=== PATIENT | male | born 1945 | race Caucasian/White ===

== ENCOUNTER 2016-07-21 01:47 | Emergency (ER) | payer MEDICARE ==
[2016-07-21 01:50] VITALS: BMI 23.7
[2016-07-21 01:54] VITALS: TEMP 97.7
[2016-07-21 03:24] LABS: URINE BILIRUBIN NEGATIVE (NEGATIVE); URINE BLOOD SMALL (NEGATIVE); URINE GLUCOSE (UA) >=1000 mg/dL (NEGATIVE); URINE KETONE NEGATIVE (NEGATIVE); URINE LEUKOCYTE ESTERASE NEGATIVE Leu/uL (NEGATIVE); URINE PROTEIN NEGATIVE mg/dL (<30 mg/dL); URINE UROBILINOGEN 0.2 E.U./dL (<1 E.U./dL)
[2016-07-21 03:25] LABS: URINE APPEARANCE CLEAR (CLEAR); URINE COLOR YELLOW (YELLOW)
[2016-07-21 03:39] LABS: URINE BACTERIA FEW (NEG); URINE EPITHELIAL CELLS 0 - 2 /hpf (0-5); URINE WBC 0 - 2 /hpf (0-6)
[2016-07-21 04:03] VITALS: BP 128/72; PULSE 72; RESP 17; O2SAT 99
--- NOTE | 2016-07-21 04:22 | ED PDOC ---
Arrival/HPI - General Chief Complaint: Male Genitourinary Time Seen by Provider: 07/21/16 02:50 Historian: Patient - History of Present Illness Narrative History of Present Illness (Text): 07/21/16 03:00 A 70 year old male presents to the Emergency department complaining of not being able to urinate since early in the evening. Patient also reports suprapubic pain. Patient denies nausea, vomiting, fever or any other complaints at this time. Patient also denies dysuria or hematuria recently. Patient notes similar pain in the past. Symptom Onset: Sudden Symptom Course: Unchanged Activities at Onset: Rest Modifying Factors (Text): none Past Medical History - Provider Review Nursing Documentation Reviewed: Yes - Infectious Disease Hx of Infectious Diseases: None - Cardiac Hx [place]: Yes Hx Hypertension: Yes Hx Pacemaker: No - Neurological Hx Paralysis: No - Endocrine/Metabolic Hx Diabetes Mellitus Type 2: Yes - Hematological/Oncological Hx Blood Transfusions: No - Musculoskeletal/Rheumatological Hx Musculoskeletal Disorders: No - Psychiatric Hx Emotional Abuse: No Hx Physical Abuse: No Hx Substance Use: No - Surgical History Hx Cardiac Catheterization: Yes (x1 stent) - Anesthesia Hx Anesthesia: Yes Hx Anesthesia Reactions: No Hx Malignant Hyperthermia: No - Suicidal Assessment Feels Threatened In Home Enviroment: No Family/Social History - Physician Review Nursing Documentation Reviewed: Yes Family/Social History: No Known Family HX Smoking Status: Never Smoked Hx Alcohol Use: Yes (SOCIALLY) Frequency of alcohol use: Socially Hx Substance Use: No Allergies/Home Meds Allergies/Adverse Reactions: Allergies No Known Allergies Allergy (Verified 10/02/13 12:42) Home Medications: Home Meds Medication Instructions Recorded Confirmed Aspirin [Aspirin EC] 1 tab PO DAILY 07/21/16 07/21/16 Atorvastatin [Lipitor] 1 tab PO HS 07/21/16 07/21/16 Canagliflozin/Metformin HCl 1 tab PO BID 07/21/16 07/21/16 [Invokamet 150-1,000 mg Tablet] Isosorbide Mononitrate [Isosorbide 1 tab PO DAILY 07/21/16 07/21/16 Mononitrate ER] Lisinopril [Zestril] 1 tab PO DAILY 07/21/16 07/21/16 Metoprolol Succinate [Toprol XL] 1 tab PO DAILY 07/21/16 07/21/16 Review of Systems - Physician Review All systems were reviewed & negative as marked: Yes - Review of Systems Constitutional: absent: Fevers Gastrointestinal: Abdominal Pain (suprapubic). absent: Nausea, Vomiting Genitourinary Male: Urinary Output Changes. absent: Dysuria, Hematuria Physical Exam Vital Signs Reviewed: Yes Vital Signs Temp Pulse Resp BP Pulse Ox 07/21/16 04:01 72 17 128/72 99 07/21/16 01:54 97.7 F 84 18 175/89 H 96 Temperature: Afebrile Blood Pressure: Hypertensive Pulse: Regular Respiratory Rate: Normal Appearance: Positive for: Well-Appearing, Non-Toxic, Comfortable Pain Distress: None Mental Status: Positive for: Alert and Oriented X 3 - Systems Exam Head: Present: Atraumatic, Normocephalic Pupils: Present: PERRL Extroacular Muscles: Present: EOMI Conjunctiva: Present: Normal Mouth: Present: Moist Mucous Membranes Neck: Present: Normal Range of Motion Respiratory/Chest: Present: Clear to Auscultation, Good Air Exchange. No: Respiratory Distress, Accessory Muscle Use Cardiovascular: Present: Regular Rate and Rhythm, Normal S1, S2. No: Murmurs Abdomen: Present: Tenderness (suprapubic), Normal Bowel Sounds. No: Peritoneal Signs Back: Present: Normal Inspection Upper Extremity: Present: Normal Inspection. No: Cyanosis, Edema Lower Extremity: Present: Normal Inspection. No: Edema Neurological: Present: GCS=15, CN II-XII Intact, Speech Normal Skin: Present: Warm, Dry, Normal Color. No: Rashes Psychiatric: Present: Alert, Oriented x 3, Normal Insight, Normal Concentration Medical Decision Making ED Course and Treatment: 07/21/16 03:00 Impression: A 70 year old male unable to urinate with suprapubic pain. Differential Diagnosis included but are not limited to: Plan: -- Urinalysis -- Reassess and disposition Progress Notes: Patient states has had this pain in past, requires Alvarado. Alvarado put in, 700 cc came out. Patient feeling better. Will follow up with own urologist or Dr. Quick. 07/21/16 03:40 On re-evaluation, patient feels better and is in no acute distress. I have discussed the results and plan with the patient, who expresses understanding. Patient in agreement with plan to be discharged home. Patient is stable for discharge. Patient was instructed to follow up with physician or return if symptoms worsen or new concerning symptoms arise. - Lab Interpretations Lab Results: Lab Results 07/21/16 02:25: Urine Color Yellow, Urine Appearance Clear, Urine pH 6.0, Ur Specific [place] <= 1.005, Urine Protein Negative, Urine Glucose (UA) >=1000, Urine Ketones Negative, Urine Blood Small H, Urine Nitrate Negative, Urine Bilirubin Negative, Urine Urobilinogen 0.2, Ur Leukocyte Esterase Negative, Urine RBC 2 - 5, Urine WBC 0 - 2, Ur Epithelial Cells 0 - 2, Urine Bacteria Few - Scribe Statement The provider has reviewed the documentation as recorded by the Tamy Rojas Provider Scribe Attestation: All medical record entries made by the Scribe were at my direction and personally dictated by me. I have reviewed the chart and agree that the record accurately reflects my personal performance of the history, physical exam, medical decision making, and the department course for this patient. I have also personally directed, reviewed, and agree with the discharge instructions and disposition. Disposition/Present on Arrival - Present on Arrival Any Indicators Present on Arrival: No History of DVT/PE: No History of Uncontrolled Diabetes: No Urinary Catheter: No History of Decub. Ulcer: No History Surgical Site Infection Following: None - Disposition Have Diagnosis and Disposition been Completed?: Yes Diagnosis: Urinary retention Disposition: HOME/ ROUTINE Disposition Time: 03:40 Condition: IMPROVED Discharge Instructions (ExitCare): Alvarado Catheter Placement and Care (ED), Urinary Leg Bag (GEN) Additional Instructions: Thank you for letting us take care of you today. Your provider was Dr. Goodwin. You were treated for urinary retention. The emergency medical care you received today was directed at your acute symptoms. If you were prescribed any medication, please fill it and take as directed. It may take several days for your symptoms to resolve. Return to the Emergency Department if your symptoms worsen, do not improve, or if you have any other problems. Please contact your doctor or call one of the physicians/clinics you have been referred to that are listed on the Patient Visit Information form that is included in your discharge packet. Bring any paperwork you were given at discharge with you along with any medications you are taking to your follow up visit. Our treatment cannot replace ongoing medical care by a primary care provider (PCP) outside of the emergency department. Thank you for allowing the [facility] team to be part of your care today. You had a urine culture: It will take several days for the results, if any change in treatment is needed we will contact you. Follow up with Dr. Quick (urology) or your urologist in 2-3 days. Prescriptions: Nitrofurantoin Macrocrystals [Macrobid] 100 mg PO BID #10 cap Tamsulosin [Flomax] 0.4 mg PO DAILY #7 cap Referrals: Dawson Quick MD [Staff Provider] - Follow up with primary
== END 2016-07-21 04:01 | disposition home or self-care (01) ==
LOC: ED 01:47
DX: R33.9 Retention of urine, unspecified (principal)

== ENCOUNTER 2016-12-07 22:58 | Emergency (ER) | payer MEDICARE ==
[2016-12-07 23:19] VITALS: BMI 20.2
[2016-12-07 23:28] VITALS: BP 152/77; PULSE 90; RESP 19; TEMP 98; O2SAT 98
--- NOTE | 2016-12-07 23:45 | ED PDOC ---
Arrival/HPI <Cleveland Wakefield - Last Filed: 12/08/16 00:17> - General Historian: Patient - History of Present Illness Time/Duration: 4-6 hours Symptom Onset: Sudden Symptom Course: Unchanged Quality: Pressure, Fullness Severity Level: Moderate, Severe Context: Home <Juliann Aguilar - Last Filed: 12/08/16 00:19> - General Chief Complaint: Male Genitourinary Time Seen by Provider: 12/07/16 23:27 - History of Present Illness Narrative History of Present Illness (Text): 12/07/16 23:42 70M w/PMH sig for urinary retention evaluated for abdominal pain x 1.5 hrs. Pt reports pain is suprapubic, non radiating, constant, moderate, no alleviating factors identified, no aggravating factors identified. Pt reports similar abdominal pain when he had urinary retention previous. Did not take his Flomax tonight. Drank a few beers prior to arrival. Pt reports he has had a urological work up with Dr. Quick, which was negative for any masses, polyps or other urological findings. Denies N/V/F/C, shortness of breath, chest pain, constipation, diarrhea, dysuria, hematuria, flank pain, back pain. PMH: Hx urinary retention, CAD s/p stents, diabetes, hypertension PSH: Cardiac stents All: NKDA SH: Admits to 3-4 beers/mo, denies tobacco or illicit drug use PMD: [place] [facility]: [facility] (Juliann Aguilar) Modifying Factors (Text): 12/08/16 00:18 None (Juliann Aguilar) Associated Symptoms (Text): 12/08/16 00:18 None (Juliann Aguilar) Past Medical History - Provider Review Nursing Documentation Reviewed: Yes - Infectious Disease Hx of Infectious Diseases: None - Cardiac Hx [place]: Yes Hx Hypertension: Yes Hx Pacemaker: No - Neurological Hx Paralysis: No - Endocrine/Metabolic Hx Diabetes Mellitus Type 2: Yes - Hematological/Oncological Hx Blood Transfusions: No - Musculoskeletal/Rheumatological Hx Musculoskeletal Disorders: No - Psychiatric Hx Emotional Abuse: No Hx Physical Abuse: No Hx Substance Use: No - Surgical History Hx Cardiac Catheterization: Yes (x1 stent) - Anesthesia Hx Anesthesia: Yes Hx Anesthesia Reactions: No Hx Malignant Hyperthermia: No - Suicidal Assessment Feels Threatened In Home Enviroment: No <Juliann Aguilar - Last Filed: 12/08/16 00:19> Family/Social History - Physician Review Nursing Documentation Reviewed: Yes Family/Social History: No Known Family HX Smoking Status: Never Smoked Hx Alcohol Use: Yes (SOCIALLY) Hx Substance Use: No <Juliann Aguilar - Last Filed: 12/08/16 00:19> Allergies/Home Meds <Cleveland Wakefield - Last Filed: 12/08/16 00:17> <Juliann Aguilar - Last Filed: 12/08/16 00:19> Allergies/Adverse Reactions: Allergies No Known Allergies Allergy (Verified 10/02/13 12:42) Home Medications: Home Meds Medication Instructions Recorded Confirmed Atorvastatin Calcium [Lipitor] 80 mg PO DAILY 12/07/16 12/07/16 Canagliflozin/Metformin HCl 1 tab PO BID 12/07/16 12/07/16 [Invokamet 150 mg-1000 mg] Ferrous Sulfate [Feosol] 325 mg PO DAILY 12/07/16 12/07/16 Isosorbide Mononitrate [Isosorbide 30 mg PO DAILY 12/07/16 12/07/16 Mononitrate ER] Lisinopril [Zestril] 40 mg PO DAILY 12/07/16 12/07/16 Metoprolol Succinate [Toprol XL] 25 mg PO DAILY 12/07/16 12/07/16 Tamsulosin [Flomax] 0.4 mg PO DAILY 12/07/16 12/07/16 Review of Systems - Physician Review All systems were reviewed & negative as marked: Yes - Review of Systems Constitutional: Normal Eyes: Normal ENT: Normal Respiratory: Normal Cardiovascular: Normal Gastrointestinal: Abdominal Pain. absent: Constipation, Diarrhea, Nausea, Vomiting, Hematochezia, Hematemesis Genitourinary Male: Urinary Output Changes (decreased). absent: Dysuria, Frequency, Hematuria Musculoskeletal: Normal. absent: Back Pain Skin: Normal Neurological: Normal <Juliann Aguilar - Last Filed: 12/08/16 00:19> Physical Exam Vital Signs Reviewed: Yes Temperature: Afebrile Blood Pressure: Hypertensive Pulse: Regular Respiratory Rate: Normal Appearance: Positive for: Non-Toxic Pain Distress: Mild Mental Status: Positive for: Alert and Oriented X 3 Finger Stick Blood Glucose: 129 - Systems Exam Head: Present: Atraumatic, Normocephalic Extroacular Muscles: Present: EOMI Conjunctiva: Present: Normal Mouth: Present: Moist Mucous Membranes Nose (External): Present: Atraumatic Neck: Present: Normal Range of Motion Respiratory/Chest: Present: Clear to Auscultation, Good Air Exchange. No: Respiratory Distress, Accessory Muscle Use Cardiovascular: Present: Regular Rate and Rhythm, Normal S1, S2. No: Murmurs Abdomen: Present: Tenderness (suprapubic), Normal Bowel Sounds, Guarding ( suprapubic), Hernias (small umbilical). No: Distention, Peritoneal Signs, Rebound Back: Present: Normal Inspection. No: CVA Tenderness Upper Extremity: Present: Normal Inspection. No: Cyanosis, Edema Lower Extremity: Present: Normal Inspection. No: Edema Neurological: Present: GCS=15, CN II-XII Intact, Speech Normal Skin: Present: Warm, Dry, Normal Color. No: Rashes Psychiatric: Present: Alert, Oriented x 3, Normal Insight, Normal Concentration <Juliann Aguilar - Last Filed: 12/08/16 00:19> Vital Signs Temp Pulse Resp BP Pulse Ox 12/07/16 23:27 98 F 90 19 152/77 H 98 Medical Decision Making <Cleveland Wakefield - Last Filed: 12/08/16 00:17> <Juliann Aguilar - Last Filed: 12/08/16 00:19> ED Course and Treatment: 12/08/16 00:14 In agreement with resident note, which includes further HPI details. Patient was seen and evaluated with resident, came up with plan and treatment together. 70 year old male presents complaining of abdominal pain that began today. (Cleveland Wakefield) 12/07/16 23:46 Pt seen/evaluated, will place clinton and monitor for UOP and give Flomax 12/07/16 23:58 Clinton with over 800cc clear yellow UOP out. Will d/c home with clinton in place and instructions to follow up with Dr. Quick. (Juliann Aguilar) - Medication Orders Current Medication Orders: Discontinued Medications Tamsulosin HCl (Flomax) 0.4 mg PO STAT STA Stop: 12/07/16 23:42 - PA / COMMUNITY EDUCATOR / Resident Statement /DO has reviewed & agrees with the documentation as recorded. MD/ has examined the patient and agrees with the treatment plan. - Scribe Statement The provider has reviewed the documentation as recorded by the Scribe <Twyla,Cleveland - Last Filed: 12/08/16 00:17> <Juliann Aguilar - Last Filed: 12/08/16 00:19> - Scribe Statement Lanette Gamez Provider Scribe Attestation: All medical record entries made by the Scribe were at my direction and personally dictated by me. I have reviewed the chart and agree that the record accurately reflects my personal performance of the history, physical exam, medical decision making, and the department course for this patient. I have also personally directed, reviewed, and agree with the discharge instructions and disposition. (Cleveland Wakefield) Disposition/Present on Arrival <Cleveland Wakefield - Last Filed: 12/08/16 00:17> - Present on Arrival Any Indicators Present on Arrival: No History of DVT/PE: No History of Uncontrolled Diabetes: No Urinary Catheter: No History of Decub. Ulcer: No History Surgical Site Infection Following: None - Disposition Have Diagnosis and Disposition been Completed?: Yes Disposition Time: 23:52 <Juliann Aguilar - Last Filed: 12/08/16 00:19> - Disposition Diagnosis: Acute urinary retention Disposition: HOME/ ROUTINE Condition: STABLE Discharge Instructions (ExitCare): Urinary Retention in Men (ED), Clinton Catheter Placement and Care (ED), Urinary Leg Bag (GEN) Additional Instructions: Please follow up with Dr. Quick for further evaluation. Continue to take your Flomax, especially if you drink beer. Referrals: Dawson Quick MD [Staff Provider] - Follow up with primary Forms: Shortlist (Icelandic)
== END 2016-12-08 00:26 | disposition home or self-care (01) ==
LOC: ED 22:58
DX: R33.9 Retention of urine, unspecified (principal); I10 Essential (primary) hypertension; E11.9 Type 2 diabetes mellitus without complications

== ENCOUNTER 2017-07-27 00:42 | Emergency (ER) | payer MEDICARE ==
--- NOTE | 2017-07-27 00:49 | ED PDOC ---
Arrival/HPI - General Time Seen by Provider: 07/27/17 00:43 Historian: Patient - History of Present Illness Narrative History of Present Illness (Text): 07/27/17 00:45 71 y/o male, pmh including htn/hyperlipidemia/dm/urinary retention, nkda, c/o urinary retention x 1 day. Pt. stated that he feels suprapubic region is distended, has the urge to urinate but the pressure is not strong, didn't took his flomax today, no fever or chills, no chest pain or shortness of breath, no night sweat, no palpitation, no other medical or psychological complaints. Past Medical History - Provider Review Nursing Documentation Reviewed: Yes - Infectious Disease Hx of Infectious Diseases: None - Cardiac Hx [place]: Yes Hx Hypertension: Yes Hx Pacemaker: No - Neurological Hx Paralysis: No - Endocrine/Metabolic Hx Diabetes Mellitus Type 2: Yes - Hematological/Oncological Hx Blood Transfusions: No - Musculoskeletal/Rheumatological Hx Musculoskeletal Disorders: No - Psychiatric Hx Emotional Abuse: No Hx Physical Abuse: No Hx Substance Use: No - Surgical History Hx Cardiac Catheterization: Yes (x1 stent) - Anesthesia Hx Anesthesia: Yes Hx Anesthesia Reactions: No Hx Malignant Hyperthermia: No - Suicidal Assessment Feels Threatened In Home Enviroment: No Family/Social History - Physician Review Nursing Documentation Reviewed: Yes Family/Social History: Unknown Family HX Smoking Status: Never Smoked Hx Alcohol Use: Yes (SOCIALLY) Hx Substance Use: No Allergies/Home Meds Allergies/Adverse Reactions: Allergies No Known Allergies Allergy (Verified 07/27/17 00:57) Home Medications: Home Meds Medication Instructions Recorded Confirmed Atorvastatin Calcium [Lipitor] 80 mg PO DAILY 12/07/16 07/27/17 Canagliflozin/Metformin HCl 1 tab PO BID 12/07/16 07/27/17 [Invokamet 150 mg-1000 mg] Ferrous Sulfate [Feosol] 325 mg PO DAILY 12/07/16 07/27/17 Isosorbide Mononitrate [Isosorbide 30 mg PO DAILY 12/07/16 07/27/17 Mononitrate ER] Lisinopril [Zestril] 40 mg PO DAILY 12/07/16 07/27/17 Metoprolol Succinate [Toprol XL] 25 mg PO DAILY 12/07/16 07/27/17 Tamsulosin [Flomax] 0.4 mg PO DAILY 12/07/16 07/27/17 Review of Systems - Review of Systems Constitutional: absent: Fatigue, Fevers Eyes: absent: Vision Changes, Photophobia Respiratory: absent: SOB, Cough Cardiovascular: absent: Chest Pain Gastrointestinal: absent: Abdominal Pain, Diarrhea, Nausea, Vomiting Musculoskeletal: absent: Arthralgias, Back Pain Skin: absent: Rash, Pruritis Neurological: absent: Headache, Dizziness Physical Exam Vital Signs Reviewed: Yes Vital Signs Temp Pulse Resp BP Pulse Ox 07/27/17 00:54 98.0 F 97 H 18 156/85 H 96 Temperature: Afebrile Blood Pressure: Hypertensive Pulse: Regular Respiratory Rate: Normal Appearance: Positive for: Well-Appearing, Non-Toxic, Comfortable Pain Distress: None Mental Status: Positive for: Alert and Oriented X 3 - Systems Exam Head: Present: Atraumatic, Normocephalic Pupils: Present: PERRL Extroacular Muscles: Present: EOMI Conjunctiva: Present: Normal Mouth: Present: Moist Mucous Membranes Neck: Present: Normal Range of Motion Respiratory/Chest: Present: Clear to Auscultation, Good Air Exchange. No: Respiratory Distress, Accessory Muscle Use Cardiovascular: Present: Regular Rate and Rhythm, Normal S1, S2. No: Murmurs Abdomen: Present: Distention (suprapubic distension). No: Tenderness, Peritoneal Signs, Rebound, Guarding Back: Present: Normal Inspection. No: CVA Tenderness, Midline Tenderness Upper Extremity: Present: Normal Inspection. No: Cyanosis, Edema Lower Extremity: Present: Normal Inspection. No: Edema Neurological: Present: GCS=15, CN II-XII Intact, Speech Normal, Motor Func Grossly Intact, Gait Normal, Memory Normal Skin: Present: Warm, Dry, Normal Color. No: Rashes Psychiatric: Present: Alert, Oriented x 3, Normal Insight, Normal Concentration Medical Decision Making ED Course and Treatment: 07/27/17 00:50 -bladder scanner/flomax 07/27/17 01:11 -Bladder scanner show there is over 999ML -Clinton catheter 18F performed by me with total procedure 15 minutes. Sterile procedure and following the clinton kit instruction. Clean the patient with betadine swabs, sterile drape, insertion of the clinton by me with inflated the ballon, straw color urine noted, no hematuria, no complication, pt. feels immediate release and the distension resolved. -Total of 1200cc relief from the bladder. Switch to leg bag. UA ordered -No leaking noted on the catheter. 07/27/17 01:46 -UA show no UTI. -I will put the patient on the prophylatic antibiotic as he is DM and he is on the leg bag. -Discharge home with flomax, keflex, leg bag, follow up with your own pmd and DR. Quick within 2 days, return to the ER for any new or worsening signs or symptoms. - Lab Interpretations Lab Results: Lab Results 07/27/17 01:15: Urine Color Straw, Urine Appearance Clear, Urine pH 6.0, Ur Specific [place] <= 1.005, Urine Protein Negative, Urine Glucose (UA) >=1000, Urine Ketones Negative, Urine Blood Moderate H, Urine Nitrate Negative, Urine Bilirubin Negative, Urine Urobilinogen 0.2, Ur Leukocyte Esterase Negative, Urine RBC Pending, Urine WBC Pending - Medication Orders Current Medication Orders: Discontinued Medications Tamsulosin HCl (Flomax) 0.4 mg PO STAT STA Stop: 07/27/17 01:10 Last Admin: 07/27/17 01:15 Dose: 0.4 mg - PA / HEREDITARY CANCER PROGRAM COORDINATOR / Resident Statement / has reviewed & agrees with the documentation as recorded. Disposition/Present on Arrival - Present on Arrival Any Indicators Present on Arrival: No History of DVT/PE: No History of Uncontrolled Diabetes: No Urinary Catheter: No History of Decub. Ulcer: No History Surgical Site Infection Following: None - Disposition Have Diagnosis and Disposition been Completed?: Yes Diagnosis: Urinary retention Disposition: HOME/ ROUTINE Disposition Time: 00:51 Patient Plan: Discharge Patient Problems: Current Active Problems Problem Status Onset Urinary retention Acute Condition: IMPROVED Additional Instructions: -Discharge home with flomax, keflex, leg bag, follow up with your own pmd and DR. Quick within 2 days, return to the ER for any new or worsening signs or symptoms. Prescriptions: Cephalexin [cephalexin] 500 mg PO BID #18 cap Tamsulosin [Flomax] 0.4 mg PO DAILY #10 cap Referrals: Dawson Quick MD [Staff Provider] - Follow up with primary Forms: WORK NOTE
[2017-07-27 00:57] VITALS: BMI 23.7
[2017-07-27 01:42] LABS: URINE BILIRUBIN NEGATIVE (NEGATIVE); URINE BLOOD MODERATE (NEGATIVE); URINE GLUCOSE (UA) >=1000 mg/dL (NEGATIVE); URINE LEUKOCYTE ESTERASE NEGATIVE Leu/uL (NEGATIVE); URINE PROTEIN NEGATIVE mg/dL (<30 mg/dL); URINE UROBILINOGEN 0.2 E.U./dL (<1 E.U./dL)
[2017-07-27 01:44] LABS: URINE APPEARANCE CLEAR (CLEAR); URINE COLOR STRAW (YELLOW)
[2017-07-27 01:56] LABS: URINE BACTERIA SMALL (NEG); URINE RBC 0 - 2 /hpf (0-2); URINE WBC 0 - 2 /hpf (0-6)
[2017-07-27 02:18] VITALS: BP 100/53; PULSE 62; RESP 19; TEMP 98.5; O2SAT 100
== END 2017-07-27 02:01 | disposition home or self-care (01) ==
LOC: ED 00:42
DX: R33.9 Retention of urine, unspecified (principal)

== ENCOUNTER 2017-08-07 11:00 | Observation (INO) | payer MEDICARE ==
[2017-08-07 11:24] VITALS: BMI 22.1
[2017-08-07] MEDS ORDERED: Sodium Chloride 0.9% 500 ML IV STA (11:24)
[2017-08-07] MEDS ORDERED: Metoprolol 1 mg/ml Inj IVP STA (11:28)
[2017-08-07 11:38] LABS: BASO # 0.08 K/mm3 (0.0-2.0); BASO % 0.8 % (0.0-3.0); EOS # 1.3 (0.0-0.7); EOS % 12.4 % (1.5-5.0); GRAN # 6.3 (1.4-6.5); GRAN % 60.1 % (50.0-68.0); HEMOGLOBIN 13.6 g/dL (14.0-18.0); LYMPH # 2.2 (1.2-3.4); MEAN CELL VOLUME 84.4 fl (80.0-105.0); MEAN CORPUSCULAR HEMOGLOBIN 29.4 pg (25.0-35.0); MEAN CORPUSCULAR HGB CONC 34.9 g/dl (31.0-37.0); MONO # 0.6 (0.1-0.6); MONO % 5.7 % (1.0-6.0); RBC 4.62 10^6/uL (3.5-6.1); RED CELL DISTRIBUTION WIDTH 16.2 % (11.5-14.5); WHITE BLOOD COUNT 10.5 10^3/ul (4.5-11.0)
--- NOTE | 2017-08-07 11:42 | ED PDOC ---
Arrival/HPI - General Chief Complaint: Chest Pain Time Seen by Provider: 08/07/17 11:15 Historian: Patient - History of Present Illness Narrative History of Present Illness (Text): 08/07/17 11:29 pt p/w + sudden onset of palpitations, + left sided chest pain/pressure, non- radiating, severe rating of pain; pt states he felt a sudden jolt to his left sided chest region; pt states no LOC, + very dizzy/lightheaded, + diaphoretic, + weak/easily fatigued, + sob, no fever/chills, no abd pain, + mild nausea, no vomiting, no numbness/tingling, no urinary/bowel changes, no fall/trauma/sick contact, no travel. pt states he was doing his regular chores/routines yesterday and awoke this morning without any new changes pt denied other complaints pt is here for further eval pt states had similar symptoms in the past pt's last cardiac eval was few years ago PCP: Shanice cards: Saurav Time/Duration: Prior to Arrival Symptom Onset: Sudden Symptom Course: Unchanged Quality: Tightness, Cramping, Throbbing Severity Level: Severe Activities at Onset: Rest Context: Home Past Medical History - Provider Review Nursing Documentation Reviewed: Yes - Travel History Have you recently traveled outside [place] w/in the past 3 mons?: No - Past History Past History: No Previous - Infectious Disease Hx of Infectious Diseases: None - Cardiac Hx [place]: Yes Hx Hypertension: Yes Hx Pacemaker: No - Pulmonary Hx Respiratory Disorders: No - Neurological Hx Paralysis: No - HEENT Hx HEENT Disorder: No - Renal Hx Renal Disorder: No - Endocrine/Metabolic Hx Diabetes Mellitus Type 2: Yes - Hematological/Oncological Hx Blood Transfusions: No - Integumentary Hx Dermatological Disorder: No - Musculoskeletal/Rheumatological Hx Musculoskeletal Disorders: No - Gastrointestinal Hx Gastrointestinal Disorders: No - Genitourinary/Gynecological Hx Genitourinary Disorders: No - Psychiatric Hx Emotional Abuse: No Hx Physical Abuse: No Hx Substance Use: No - Surgical History Hx Cardiac Catheterization: Yes (x1 stent) - Anesthesia Hx Anesthesia: Yes Hx Anesthesia Reactions: No Hx Malignant Hyperthermia: No - Suicidal Assessment Feels Threatened In Home Enviroment: No Family/Social History - Physician Review Nursing Documentation Reviewed: Yes Family/Social History: No Known Family HX Smoking Status: Never Smoked Hx Alcohol Use: Yes (SOCIALLY) Hx Substance Use: No Hx Substance Use Treatment: No Allergies/Home Meds Allergies/Adverse Reactions: Allergies No Known Allergies Allergy (Verified 07/27/17 00:57) Home Medications: Home Meds Medication Instructions Recorded Confirmed Atorvastatin Calcium [Lipitor] 80 mg PO DAILY 12/07/16 08/07/17 Isosorbide Mononitrate [Isosorbide 30 mg PO DAILY 12/07/16 08/07/17 Mononitrate ER] Lisinopril [Zestril] 20 mg PO DAILY 12/07/16 08/07/17 Aspirin [Ecotrin] 325 mg PO DAILY 08/07/17 08/07/17 Canagliflozin/Metformin HCl 1 tab PO BID 08/07/17 08/07/17 [Invokamet 150 mg-1000 mg] Cyclobenzaprine [Flexeril] 5 mg PO TID 08/07/17 08/07/17 Metoprolol Tartrate [Lopressor] 50 mg PO BID 08/07/17 08/07/17 Review of Systems - Review of Systems Constitutional: Fatigue Eyes: Normal ENT: Normal Respiratory: SOB. absent: Cough, Sputum, Wheezing Cardiovascular: Chest Pain, Palpitations, GILL Gastrointestinal: Nausea. absent: Abdominal Pain, Stool Changes, Vomiting Genitourinary Male: Normal Musculoskeletal: Normal Skin: Normal Neurological: Dizziness. absent: Headache Endocrine: Diaphoresis Hemo/Lymphatic: Normal Psychiatric: Normal Physical Exam - Physical Exam Narrative Physical Exam (Text): 08/07/17 11:15 General: alert/awake, GCS = 15, oriented x 3, resting in bed, uncomfortable, cooperative, interactive; NAD Head: NC/AT EYE: PERRLA, EOMI, sclera anicteric, no nystagmus, no photophobia; visual field intact b/l Facial: WNL Oral: uvula/tongue are midline, no exudate/lesions, no drooling/stridor, no dysphonia; intact dentitions; mild dry oral mucosa NECK: intact ROM, no midline tenderness, no nuchal rigidity, no meningeal signs ; no step off Chest: CTA b/l, no w/r/r; no tachypenia, no accessory muscle use noted Chest Wall: no focal tenderness, no gross deformities, no crepitus, no lesions/ rashes noted Cardiac: +S1, +S2, no m/r/r, + rapid tachycardia; regular rhythm Abdominal: +BS, soft/nd/nt, well nourished patient; no masses/rebound/guarding/ rigidity; no hall's sign, no mcburney's point tenderness Extremities: intact ROM, strength 5/5 grossly intact in all limbs, neurovasc intact b/l; + ambulatory; reflex +2/2; no pitting edema/swelling noted, no ever 's sign b/l BACK: no step off, no midline tenderness, NO crepitus, no gross deformities noted; Intact ROM SKIN: cap refill < 1 sec, no ulcerations, no petechiae, no rashes; mild pallor noted NEURO: CNII-XII WNL, no facial asymmetries, no slurr speech, oriented x 3 NIH stroke scale ~ 0 Psych: normal insight, normal affect; follows command with ease Vital Signs Reviewed: Yes Vital Signs Temp Pulse Resp BP Pulse Ox 08/07/17 12:02 98 H 18 113/72 100 08/07/17 11:53 99 H 167/98 H 08/07/17 11:10 98 F 151 H 20 122/86 100 Temperature: Afebrile Blood Pressure: Normal Pulse: Tachycardic Respiratory Rate: Normal Appearance: Positive for: Well-Appearing, Non-Toxic, Uncomfortable. No: Ill- Appearing, Unkept Pain Distress: None Mental Status: Positive for: Alert and Oriented X 3 - Systems Exam Head: Present: Atraumatic, Normocephalic Medical Decision Making ED Course and Treatment: 08/07/17 11:46 Impression: palpitations, chest pain i have consider all the differential diagnosis regarding pt's chief medical complaints/clinical findings, including but are not limited to: r/o acs, palpitations/chest pain A/P: chest pain, palpitations - labs - iv - xray - acs eval - supportive care - observe/reevaluation 08/07/17 11:24am received pt's verbal consent to provide patient with chemical/medication to cardiovert patient; pt received 6 mg of adenosine, IVP; pt heart rate slowed to 107bpm, pt felt improved; pt states his chest pain is improved; NO LOC, no adverse reactions noted from the patient will continue to monitor patient 08/07/17 12:[address] Tabares, who agrees with emergency department management and will continue to monitor patient. Dr Tabares is at bedside 08/07/17 13:[address] Sherman, hospitalist on-call, who is made aware patient's condition and agrees with admission. Will continue to monitor patient. 08/07/17 1320 pt is currently chest pain free pt is not in any distress pt is comfortable pt is made aware of his medical results agrees with admission Re-evaluation Time: 12:30 Reassessment Condition: Improved - Critical Care Critical Care Minutes: 30 minutes Critical Care Time: Excluding Proc Time Narrative Critical Care (Text): 08/07/17 11:56 critical care time: 30min, excluding procedure time, excluding time teaching residents/students/mid-level providers; including initial eval/diagnosis, diagnostic interpretation, re-eval, consultations, final disposition - Lab Interpretations Lab Results: 08/07/17 11:25 08/07/17 11:25 Lab Results 08/07/17 11:25: Sodium 142, Potassium 4.2, Chloride 104, Carbon Dioxide 22, Anion Gap 21 H, BUN 27 H, Creatinine 0.9, Est GFR ( Amer) > 60, Est GFR ( Non-Af Amer) > 60, Random Glucose 255 H, Calcium 9.7, Magnesium 1.5 L, Total Bilirubin 0.5, AST 37, ALT 60 H, Alkaline Phosphatase 94, Lactate Dehydrogenase 379, Total Creatine Kinase 80, Troponin I 0.02, Total Protein 7.8, Albumin 4.3, Globulin 3.5, Albumin/Globulin Ratio 1.2 08/07/17 11:25: PT 11.8, INR 1.03, APTT 31.5 08/07/17 11:25: WBC 10.5, RBC 4.62, Hgb 13.6 L, Hct 39.0 L, MCV 84.4, MCH 29.4, MCHC 34.9, RDW 16.2 H, Plt Count 216, MPV 11.0, Gran % 60.1, Lymph % (Auto) 21.0 L, [place] % (Auto) 5.7, Eos % (Auto) 12.4 H, Baso % (Auto) 0.8, Gran # 6.30, Lymph # (Auto) 2.2, [place] # (Auto) 0.6, Eos # (Auto) 1.3 H, Baso # (Auto) 0.08 I have reviewed the lab results: Yes Interpretation: Abnormal lab values (elevated GLUC) - RAD Interpretation Narrative RAD Interpretations (Text): 08/07/2017 11:45 Chest X-ray IMPRESSION: No active disease. Dictator: Bobby Stahl MD Radiology Orders: 08/07/17 11:22 CHEST PORTABLE [RAD] Stat [employer] Operator: Radiologist - EKG Interpretation EKG Interpretation (Text): 08/07/17 11:57 EKG1: SVT at 150 bpm, LAD, no ectopy, nonspecific st-t changes, ABNL EKG; no old ekg to compare with EKG2: Sinus tach at 105 bpm, LAD, no ectopy, non-specific st-t changes, ABNL EKG ; no old ekg to compare with EKG rhythm strip: noted success with adenosine x 6mg IVP, pt's SVT broke, now, sinus rhythm ~ 100 bpm Interpreted by ED Physician: Yes Type: 12 lead EKG Comparison: No previous EKG avail. - Medication Orders Current Medication Orders: Aspirin (Aspirin) 325 mg PO DAILY REMBERTO Atorvastatin Calcium (Lipitor) 80 mg PO DIN REMBERTO Insulin Human Regular (Humulin R Low) 0 units SC ACHS REMBERTO PRN Reason: Protocol Isosorbide Mononitrate (Imdur) 60 mg PO DAILY REMBERTO Metoprolol Tartrate (Lopressor) 50 mg PO Q8H REMBERTO Discontinued Medications Adenosine (Adenosine 6 Mg/2 Ml Inj) 12 mg IVP STAT STA Stop: 08/07/17 11:25 Last Admin: 08/07/17 11:52 Dose: Aspirin (Aspirin) 325 mg PO STAT STA Stop: 08/07/17 11:23 Last Admin: 08/07/17 11:51 Dose: 325 mg Sodium Chloride (Sodium Chloride 0.9%) 500 mls @ 999 mls/hr IV .Q31M STA Stop: 08/07/17 11:54 Last Admin: 08/07/17 11:52 Dose: 999 mls/hr eMAR Start Stop Document 08/07/17 11:52 SRE (Rec: 08/07/17 11:53 SRE [id number]) Intravenous Solution Start Date 08/07/17 Start Time 11:25 End Date 08/07/17 End time 11:55 Total Infusion Time 30 Metoprolol Tartrate (Lopressor) 5 mg IVP STAT STA Stop: 08/07/17 11:29 Last Admin: 08/07/17 11:53 Dose: 5 mg IVP Administration Document 08/07/17 11:53 SRE (Rec: 08/07/17 11:53 SRE [id number]) Charges for Administration # of IVP Administrations 1 MAR Pulse and Blood Pressure Document 08/07/17 11:53 SRE (Rec: 08/07/17 11:53 SRE [id number]) Pulse Pulse Rate (60-90) 99 Blood Pressure Blood Pressure (100/60-150/90) 167/98 Disposition/Present on Arrival - Present on Arrival Any Indicators Present on Arrival: No History of DVT/PE: No History of Uncontrolled Diabetes: No Urinary Catheter: No History of Decub. Ulcer: No History Surgical Site Infection Following: None - Disposition Have Diagnosis and Disposition been Completed?: Yes Diagnosis: SVT (supraventricular tachycardia), Chest pain with moderate risk for cardiac etiology Disposition: HOSPITALIZED Disposition Time: 12:30 Patient Plan: Admission, Telemetry Patient Problems: Current Active Problems Problem Status Onset Chest pain with moderate risk for cardiac etiology Acute SVT (supraventricular tachycardia) Acute Condition: STABLE
--- NOTE | 2017-08-07 11:47 | RAD ---
HISTORY: palpitations COMPARISON: No prior. FINDINGS: LUNGS: No active pulmonary disease. PLEURA: No significant pleural effusion identified, no pneumothorax apparent. CARDIOVASCULAR: Normal. OSSEOUS STRUCTURES: No significant abnormalities. VISUALIZED UPPER ABDOMEN: Normal. OTHER FINDINGS: None. IMPRESSION: No active disease.
[2017-08-07 11:48] LABS: ALB/GLOB RATIO 1.2 (1.1-1.8); ALBUMIN 4.3 g/dL (3.0-4.8); ALT/SGPT 60 U/L (7-56); AST/SGOT 37 U/L (17-59); BLOOD UREA NITROGEN 27 mg/dL (7-21); CALCIUM 9.7 mg/dL (8.4-10.5); GFR AFRICAN-AMERICAN > 60; GFR NON-AFRICAN AMERICAN > 60
[2017-08-07 11:56] LABS: INR 1.03 (0.93-1.08); PARTIAL THROMBOPLASTIN TIME 31.5 Seconds (25.1-36.5); PROTHROMBIN TIME 11.8 SECONDS (9.4-12.5)
[2017-08-07 12:00] LABS: TROPONIN I 0.02 ng/mL
[2017-08-07 14:12] LABS: URINE BILIRUBIN NEGATIVE (NEGATIVE); URINE BLOOD NEGATIVE (NEGATIVE); URINE GLUCOSE (UA) >=1000 mg/dL (NEGATIVE); URINE LEUKOCYTE ESTERASE NEGATIVE Leu/uL (NEGATIVE); URINE PROTEIN NEGATIVE mg/dL (<30 mg/dL); URINE UROBILINOGEN 0.2 E.U./dL (<1 E.U./dL)
[2017-08-07 14:22] LABS: URINE APPEARANCE CLEAR (CLEAR); URINE COLOR YELLOW (YELLOW)
--- NOTE | 2017-08-07 14:59 | CP.PCM.HP ---
<Gerardo Sprague - Last Filed: 08/07/17 16:28> History of Present Illness - History of Present Illness History of Present Illness: 71 year old male with a past medical history of hypertension, hyperlipidemia, diabetes mellitus, CAD (s/p 1 stent) and Urinary retention who comes in complaining of chest pain that began this morning at 7a.m. The patient reports waking up and headed to the bathroom when he had this shock like pain that began in his head and moved down to the left side of his chest and moved to the left arm. The patient soon after became diaphoretic. He also admits to having a headache, palpitations, double vision and headache in conjunction with the presenting symptoms. The patient reports having this same sensation in the past multiple of times. The last episode occurred 07/17/17 and at that point the symptoms shortly subsided after. The patient denies any nausea, vomiting, fevers, syncopal episodes, or any other complaints. Past medical history: hypertension, hyperlipidemia, Type 2 diabetes mellitus, urinary retention Medications: Lisinopril, Invocana, Aspirin, Lipitor, Metoprolol Allergies: Denies Past surgical history: Stent placement Social history: Lives with . Previous smoker over 40 years ago. Denies illicit drug use. PMD: Dr. Prasad Cardiology: Dr. Hinkle Present on Admission - Present on Admission Any Indicators Present on Admission: No Review of Systems - Constitutional Constitutional: Excessive Sweating. absent: Anorexia, Chills, Daytime Sleepiness, Fever, Headache, Malaise, Weakness - EENT Eyes: Diplopia. absent: Blurred Vision, Discharge, Loss of Peripheral Vision, Sees Flashes Ears: absent: Decreased Hearing, Ear Discharge, Disequilibrium, Dizziness Nose/Mouth/Throat: absent: Nasal Congestion, Nose Pain, Sinus Pressure, Bleeding Gums, Mouth Pain, Facial Pain - Cardiovascular Cardiovascular: Chest Pain, Palpitations. absent: Claudication, Edema, Irregular Heart Rhythm, Leg Edema, Paroxysmal Nocturnal Dyspnea, Pedal Edema, Slow Heart Rate, Syncope - Respiratory Respiratory: absent: Dyspnea, Hemoptysis, Stridor - Gastrointestinal Gastrointestinal: absent: Belching, Change in Stool Character, Diarrhea, Loose Stools, Melena, Nausea - Musculoskeletal Musculoskeletal: absent: Arthralgias, Muscle Weakness, Myalgias, Stiffness, Tingling - Integumentary Integumentary: absent: Bleeding Lesions, Changing Lesions, Lesions, Rash, Swelling, Unusual Bruising - Neurological Neurological: absent: Abnormal Hearing, Burning Sensations, Disequilibrium, Loss of Vision, Paresthesias, Restless Legs, Tremor, Vertigo, Weakness - Psychiatric Psychiatric: absent: Anhedonia, Depression, Hopelessness, Panic Attacks, Paranoia - Hematologic/Lymphatic Hematologic: absent: Easy Bleeding, Easy Bruising Past Patient History - Infectious Disease Hx of Infectious Diseases: None - Past Social History Smoking Status: Never Smoked - CARDIAC Hx Heart Attack: Yes Hx Hypertension: Yes Hx Pacemaker: No - PULMONARY Hx Respiratory Disorders: No - NEUROLOGICAL Hx Paralysis: No - HEENT Hx HEENT Problems: No - RENAL Hx Chronic Kidney Disease: No - ENDOCRINE/METABOLIC Hx Diabetes Mellitus Type 2: Yes - HEMATOLOGICAL/ONCOLOGICAL Hx Blood Transfusions: No - INTEGUMENTARY Hx Dermatological Problems: No - MUSCULOSKELETAL/RHEUMATOLOGICAL Hx Musculoskeletal Disorders: No - GASTROINTESTINAL Hx Gastrointestinal Disorders: No - GENITOURINARY/GYNECOLOGICAL Hx Genitourinary Disorders: No - PSYCHIATRIC Hx Emotional Abuse: No Hx Physical Abuse: No Hx Substance Use: No - SURGICAL HISTORY Hx Cardiac Catheterization: Yes (x1 stent) - ANESTHESIA Hx Anesthesia: Yes Hx Anesthesia Reactions: No Hx Malignant Hyperthermia: No Meds Allergies/Adverse Reactions: Allergies Allergy/AdvReac Type Severity Reaction Status Date / Time No Known Allergies Allergy Verified 07/27/17 00:57 Physical Exam - Head Exam Head Exam: ATRAUMATIC, NORMAL INSPECTION, NORMOCEPHALIC - Eye Exam Eye Exam: EOMI, Normal appearance, PERRL Pupil Exam: NORMAL ACCOMODATION, PERRL. absent: Irregular, Unequal - ENT Exam ENT Exam: Mucous Membranes Moist, Normal Oropharynx - Neck Exam Neck exam: Positive for: Normal Inspection. Negative for: Lymphadenopathy, Thyromegaly - Respiratory Exam Respiratory Exam: Clear to Auscultation Bilateral, NORMAL BREATHING PATTERN. absent: Chest Wall Tenderness, Prolonged Expiratory Phase, Respiratory Distress - Cardiovascular Exam Cardiovascular Exam: REGULAR RHYTHM, RRR, +S1, +S2. absent: Rubs - GI/Abdominal Exam GI & Abdominal Exam: Normal Bowel Sounds, Soft - Extremities Exam Extremities exam: Positive for: full ROM, normal inspection. Negative for: joint swelling, pedal edema - Back Exam Back exam: NORMAL INSPECTION. absent: CVA tenderness (L), CVA tenderness (R), paraspinal tenderness - Neurological Exam Neurological exam: Alert, CN II-XII Intact, Oriented x3 - Psychiatric Exam Psychiatric exam: Normal Affect, Normal Mood - Skin Skin Exam: Dry, Intact, Normal Color Results - Vital Signs Recent Vital Signs: Last Vital Signs Temp 98 F 08/07/17 11:10 Pulse 98 H 08/07/17 12:02 Resp 18 08/07/17 12:02 BP 113/72 08/07/17 12:02 Pulse Ox 100 08/07/17 12:02 - Labs Result Diagrams: 08/07/17 11:25 08/07/17 11:25 Labs: Laboratory Results - last 24 hr 08/07/17 14:00 Urine Color Yellow Urine Appearance Clear Urine pH 6.0 Ur Specific [place] <= 1.005 Urine Protein Negative Urine Glucose (UA) >=1000 Urine Ketones Negative Urine Blood Negative Urine Nitrate Negative Urine Bilirubin Negative Urine Urobilinogen 0.2 Ur Leukocyte Esterase Negative Assessment & Plan - Assessment and Plan (Free Text) Assessment: 71 year old male with a past medical history of hypertension, hyperlipdemia, diabetes, urinary retention and cad (s/p 1 Stent placment) who is being admitted for chest pain. Plan: 1. Chest pain r/o ACS -Patient presented to E.D. after reporting diaphoresis and chest pain. -EKG: SVT at 151bpm with non specific ST-T changes -Troponins: .02 . Troponins ordered x2. Trend troponins. -TSH ordered. Will f/u with results -Lipid panel ordered .Will f/u with results -Hemoglobin A1C ordered. Will f/u with results -Cardio consulted. Help appreciated. -Echocardiogram ordered. Will f/u with results. 2.SVT -Initial presentation in the e.d. was SVT @180bpm. -Patient given 6mg Adenosine initially and heart rate decreased. -Resolved. Cardiology consulted. Help appreciated. 3.Urinary retention -Restart home medications 4. Hyperlipidemia -Lipitor 80mg Daily 5. Type 2 Diabetes -Hold home medications. -ISS Low. Accuchecks -Carbohydrate consistent diet. PPX -Protonix. <Anton Louise - Last Filed: 08/07/17 17:04> Results - Vital Signs Recent Vital Signs: Last Vital Signs Temp 98 F 08/07/17 16:50 Pulse 65 08/07/17 16:50 Resp 18 06/06/18 16:00 BP 124/79 08/07/17 16:50 Pulse Ox 99 08/07/17 16:50 - Labs Result Diagrams: 08/07/17 11:25 08/07/17 11:25 Labs: Laboratory Results - last 24 hr 08/07/17 14:00 Urine Color Yellow Urine Appearance Clear Urine pH 6.0 Ur Specific [place] <= 1.005 Urine Protein Negative Urine Glucose (UA) >=1000 Urine Ketones Negative Urine Blood Negative Urine Nitrate Negative Urine Bilirubin Negative Urine Urobilinogen 0.2 Ur Leukocyte Esterase Negative Attending/Attestation - Attestation I have personally seen and examined this patient.: Yes I have fully participated in the care of the patient.: Yes I have reviewed all pertinent clinical information: Yes Notes (Text): Patient seen and examined with the residents. Agree with above Symptoms of palpitations attributed to SVT, broke with Adenosine Currently in sinus rhythm, will do rate control with bblockade Cardio consultation appreciated.
--- NOTE | 2017-08-07 15:49 | CARD ---
APPROVED REPORT EKG Measurement Heart [id number] <Conclusion> Supraventricular tachycardia STTW changes Leftward axis
[2017-08-07 16:01] VITALS: O2SAT 99
--- NOTE | 2017-08-07 16:04 | CARD ---
APPROVED REPORT EKG Measurement Heart [id number] <Conclusion> Sinus tachycardia NSSTW changes
[2017-08-07] MEDS: Insulin Reg-LOW-Coverage SC SCH ×2 (16:26→22:50)
[2017-08-07 19:54] LABS: HDL CHOLESTEROL 40 mg/dL (29-60)
[2017-08-07 20:05] LABS: LDL CHOLESTEROL 49 mg/dL (0-129)
--- NOTE | 2017-08-07 20:14 | CON ---
DATE: 08/07/2017 REQUESTING PHYSICIAN: Dr. Sherman. REASON FOR CONSULTATION Tachycardia. HISTORY OF PRESENT ILLNESS: This is a 71-year-old man, well known to me with history of coronary disease status remote PCI and diffuse coronary disease who presents to the emergency room with complaints of tachycardia and weakness. He is noted be in supraventricular tachycardia and treated with IV adenosine with successful conversion to sinus rhythm. He states that he had a similar episode several weeks ago, which lasted for several hours, but he did not seek medical attention at that time. He denies any chest pain. He does have known coronary disease and had undergone a prior PCI of his LAD in 2008. Stress test several years ago revealed recurrent ischemia and repeat catheterization showed evidence of severe diffuse distal LAD and RCA disease with preserved LV function. Continued medical therapy had been advised at that time. He is seen resting in the emergency room and is comfortable at the present time. PAST MEDICAL HISTORY: His past history is notable for the problems as mentioned above. He does have a history of hypertension and diabetes. He does not smoke. There is a family history of premature heart disease. His cholesterol is controlled. MEDICATIONS: Current medications include Lipitor 80 mg daily, Imdur 30 mg daily, lisinopril 20 mg daily, aspirin once daily, Invokamet 150 mg/1000 mg b.i.d., Flexeril, and metoprolol 50 mg b.i.d. ALLERGIES: NONE. SOCIAL HISTORY: He does not smoke or drink. He is a retired lift truck operator. He lives with his family. FAMILY HISTORY: Both parents are from premature heart disease, one brother has congestive cardiomyopathy, sister from endometrial cancer. REVIEW OF SYSTEMS: Ten-point review of systems is otherwise unremarkable. PHYSICAL EXAMINATION: GENERAL: He is a middle-aged man who appears comfortable at the present time. VITAL SIGNS: His blood pressure is 112/70 with a pulse of 90, respirations are 16. He is afebrile. HEENT: Normocephalic, atraumatic. NECK: Supple. No JVD noted. CHEST: A few scattered rhonchi heard. HEART: PMI displaced laterally. No pathological murmurs or gallops noted. ABDOMEN: Soft and nontender with normoactive bowel sounds. EXTREMITIES: No clubbing, cyanosis, or edema. SKIN: Warm and dry. PSYCHIATRIC: Normal mood and affect. NEUROLOGIC: Alert and oriented was x3. No gross motor or sensory is appreciable. DIAGNOSTIC DATA: Initial electrocardiogram revealed an SVT at 180 beats per minute. The repeat electrocardiogram revealed sinus rhythm, nonspecific ST-T abnormalities. Chest x-ray reveals normal cardiac silhouette with clear lung alonso. White count is 10.5, hemoglobin and hematocrit 13.6 and 39 with a platelet count of 216,000. PT/PTT are normal. Potassium 4.2, BUN and creatinine 27 and 0.9, glucose 255. Troponin 0.02. IMPRESSION: 1. Paroxysmal supraventricular tachycardia, clinically resolved with adenosine administration, apparent recurrent episode. 2. Coronary artery disease status post remote PCI with severe diffuse distal disease. 3. History of hypertension and diabetes. RECOMMENDATIONS: Telemetry admission is advised for observation. His beta-ana therapy will be increased to 50 mg every 8 hours for now. The rest of his medications can continue unchanged. If he has recurrent episodes of SVT, consideration can be given to referral for ablation therapy. Continued risk factor control is advised. If stable, discharge home in 24 hours would be appropriate. Thank you for this consultation. We will be happy to follow along as needed. Jc Mg MD
[2017-08-07] MEDS: Enoxaparin 80 mg Syringe SC SCH (21:07)
[2017-08-07 23:37] VITALS: RESP 18; TEMP 98
[2017-08-07] MEDS ORDERED: Pneumococcal 23-Valent Vaccine IM ONE (23:38)
[2017-08-08 07:12] LABS: BASO # 0.1 K/mm3 (0.0-2.0); EOS # 1.6 (0.0-0.7); EOS % 16.2 % (1.5-5.0); GRAN # 4.29 (1.4-6.5); GRAN % 44.2 % (50.0-68.0); HEMOGLOBIN 12.9 g/dL (14.0-18.0); LYMPH # 3.1 (1.2-3.4); LYMPH % 31.4 % (22.0-35.0); MEAN CELL VOLUME 85.1 fl (80.0-105.0); MEAN CORPUSCULAR HEMOGLOBIN 29.1 pg (25.0-35.0); MEAN CORPUSCULAR HGB CONC 34.2 g/dl (31.0-37.0); MEAN PLATELET VOLUME 10.9 fl (7.0-11.0); MONO # 0.7 (0.1-0.6); MONO % 7.2 % (1.0-6.0); RBC 4.43 10^6/uL (3.5-6.1); RED CELL DISTRIBUTION WIDTH 16.4 % (11.5-14.5); WHITE BLOOD COUNT 9.7 10^3/ul (4.5-11.0)
[2017-08-08 07:24] LABS: ALB/GLOB RATIO 1.2 (1.1-1.8); ALBUMIN 4.2 g/dL (3.0-4.8); ALT/SGPT 52 U/L (7-56); AST/SGOT 31 U/L (17-59); BLOOD UREA NITROGEN 22 mg/dL (7-21); CALCIUM 9.1 mg/dL (8.4-10.5); GFR AFRICAN-AMERICAN > 60; GFR NON-AFRICAN AMERICAN > 60
[2017-08-08] MEDS: Insulin Reg-LOW-Coverage SC SCH ×2 (07:37→11:13)
--- NOTE | 2017-08-08 08:52 | CP.PCM.PN ---
Subjective - Date & Time of Evaluation Date of Evaluation: 08/08/17 Time of Evaluation: 07:00 - Subjective Subjective: Stable on 3R. He feels well this AM. No further CP, SOB,palp. V/S noted. RSR PE: Lungs: clear Cor.: S1S2 Abd.: soft Ext.: no edema Neuro.: alert Labs noted: trops 0.60 and 0.50. TSH NL. Lipids OK ECG: RSR. No acute changes CXR: NAD Objective - Vital Signs/Intake and Output Vital Signs (last 24 hours): Temp Pulse Resp BP Pulse Ox 98 F 62 18 124/79 99 08/07/17 23:22 08/08/17 06:00 08/07/17 23:22 08/07/17 23:22 08/07/17 18:00 Intake and Output: 08/08/17 08/08/17 06:59 18:59 Intake Total 60 Balance 60 - Medications Medications: Current Medications Aspirin (Aspirin) 325 mg PO DAILY [facility] Atorvastatin Calcium (Lipitor) 80 mg PO DIN [facility] Last Admin: 08/07/17 16:26 Dose: 80 mg Enoxaparin Sodium (Lovenox) 80 mg SC Q12H [facility] PRN Reason: Protocol Last Admin: 08/07/17 21:07 Dose: 80 mg Insulin Human Regular (Humulin R Low) 0 units SC ACHS [facility] PRN Reason: Protocol Last Admin: 08/07/17 22:50 Dose: Not Given Isosorbide Mononitrate (Imdur) 60 mg PO DAILY [facility] Lisinopril (Zestril) 20 mg PO DAILY [facility] Metoprolol Tartrate (Lopressor) 50 mg PO Q8H [facility] Last Admin: 08/08/17 06:00 Dose: 50 mg Tamsulosin HCl (Flomax) 0.4 mg PO DAILY [facility] - Labs Labs: 08/08/17 06:00 08/08/17 06:00 PT 11.8 SECONDS (9.4-12.5) 08/07/17 11:25 INR 1.03 (0.93-1.08) 08/07/17 11:25 APTT 31.5 Seconds (25.1-36.5) 08/07/17 11:25 Assessment and Plan - Assessment and Plan (Free Text) Assessment: CP/Palpitations/SVT tx'd with adenosine in ER + trops H/O CAD/Remote PCI 2008/Diffuse distal LAD and RCA on more recent cath Diabetes HBP HLD Former Smoker Plan: Check echo when done OOB ad kyaw D/C home later today with out-pt f/u with Dr. Mg: Nuclear stress and EP eval. for ablation of SVT to be arranged. Increase metoprolol to 75 mg. BID
[2017-08-08] MEDS: Enoxaparin 80 mg Syringe SC SCH (09:51)
[2017-08-08 09:55] VITALS: BP 146/92
--- NOTE | 2017-08-08 12:42 | CARD ---
APPROVED REPORT EKG Measurement Heart [id number] <Conclusion> Sinus rhythm with 1st degree AV block RVCD No change except the rate is slower
--- NOTE | 2017-08-08 15:23 | CP.PCM.DIS ---
<Gerardo Sprague - Last Filed: 08/08/17 16:16> Provider - Provider Date of Admission: 08/07/17 13:14 Attending physician: Narcisa Sherman MD Primary care physician: NO FAMILY PROVIDER Time Spent in preparation of Discharge (in minutes): 45 Hospital Course - Lab Results Lab Results: Most Recent Lab Values WBC 9.7 10^3/ul (4.5-11.0) 08/08/17 06:00 RBC 4.43 10^6/uL (3.5-6.1) 08/08/17 06:00 Hgb 12.9 g/dL (14.0-18.0) L 08/08/17 06:00 Hct 37.7 % (42.0-52.0) L 08/08/17 06:00 MCV 85.1 fl (80.0-105.0) 08/08/17 06:00 MCH 29.1 pg (25.0-35.0) 08/08/17 06:00 MCHC 34.2 g/dl (31.0-37.0) 08/08/17 06:00 RDW 16.4 % (11.5-14.5) H 08/08/17 06:00 Plt Count 204 10^3/uL (120.0-450.0) 08/08/17 06:00 MPV 10.9 fl (7.0-11.0) 08/08/17 06:00 Gran % 44.2 % (50.0-68.0) L 08/08/17 06:00 Lymph % (Auto) 31.4 % (22.0-35.0) 08/08/17 06:00 [place] % (Auto) 7.2 % (1.0-6.0) H 08/08/17 06:00 Eos % (Auto) 16.2 % (1.5-5.0) H 08/08/17 06:00 Baso % (Auto) 1.0 % (0.0-3.0) 08/08/17 06:00 Gran # 4.29 (1.4-6.5) 08/08/17 06:00 Lymph # (Auto) 3.1 (1.2-3.4) 08/08/17 06:00 [place] # (Auto) 0.7 (0.1-0.6) H 08/08/17 06:00 Eos # (Auto) 1.6 (0.0-0.7) H 08/08/17 06:00 Baso # (Auto) 0.10 K/mm3 (0.0-2.0) 08/08/17 06:00 PT 11.8 SECONDS (9.4-12.5) 08/07/17 11:25 INR 1.03 (0.93-1.08) 08/07/17 11:25 APTT 31.5 Seconds (25.1-36.5) 08/07/17 11:25 Sodium 144 mmol/L (132-148) 08/08/17 06:00 Potassium 4.2 mmol/L (3.6-5.0) 08/08/17 06:00 Chloride 106 mmol/L (98-107) 08/08/17 06:00 Carbon Dioxide 24 mmol/L (21-33) 08/08/17 06:00 Anion Gap 18 (10-20) 08/08/17 06:00 BUN 22 mg/dL (7-21) H 08/08/17 06:00 Creatinine 0.8 mg/dl (0.8-1.5) 08/08/17 06:00 Est GFR ( Amer) > 60 08/08/17 06:00 Est GFR (Non-Af Amer) > 60 08/08/17 06:00 POC Glucose (mg/dL) 131 mg/dL (65-110) H 08/08/17 11:10 Random Glucose 107 mg/dL (70-110) 08/08/17 06:00 Calcium 9.1 mg/dL (8.4-10.5) 08/08/17 06:00 Phosphorus 3.2 mg/dL (2.5-4.5) 08/08/17 06:00 Magnesium 1.7 mg/dL (1.7-2.2) 08/08/17 06:00 Total Bilirubin 0.5 mg/dL (0.2-1.3) 08/08/17 06:00 AST 31 U/L (17-59) 08/08/17 06:00 ALT 52 U/L (7-56) 08/08/17 06:00 Alkaline Phosphatase 80 U/L (38-126) 08/08/17 06:00 Lactate Dehydrogenase 379 U/L (333-699) 08/07/17 11:25 Total Creatine Kinase 80 U/L (35-230) 08/07/17 11:25 Troponin I 0.50 ng/mL H* 08/08/17 00:35 Total Protein 7.6 g/dL (5.8-8.3) 08/08/17 06:00 Albumin 4.2 g/dL (3.0-4.8) 08/08/17 06:00 Globulin 3.5 gm/dL 08/08/17 06:00 Albumin/Globulin Ratio 1.2 (1.1-1.8) 08/08/17 06:00 Triglycerides 104 mg/dL (35-160) 08/07/17 11:25 Cholesterol 113 mg/dL (130-200) L 08/07/17 11:25 LDL Cholesterol Direct 49 mg/dL (0-129) 08/07/17 11:25 HDL Cholesterol 40 mg/dL (29-60) 08/07/17 11:25 TSH 3rd Generation 3.05 mIU/mL (0.46-4.68) 08/07/17 11:25 Urine Color Yellow (YELLOW) 08/07/17 14:00 Urine Appearance Clear (CLEAR) 08/07/17 14:00 Urine pH 6.0 (4.7-8.0) 08/07/17 14:00 Ur Specific [place] <= 1.005 (1.005-1.035) 08/07/17 14:00 Urine Protein Negative mg/dL (<30 mg/dL) 08/07/17 14:00 Urine Glucose (UA) >=1000 mg/dL (NEGATIVE) 08/07/17 14:00 Urine Ketones Negative mg/dL (NEGATIVE) 08/07/17 14:00 Urine Blood Negative (NEGATIVE) 08/07/17 14:00 Urine Nitrate Negative (NEGATIVE) 08/07/17 14:00 Urine Bilirubin Negative (NEGATIVE) 08/07/17 14:00 Urine Urobilinogen 0.2 E.U./dL (<1 E.U./dL) 08/07/17 14:00 Ur Leukocyte Esterase Negative [facility]/uL (NEGATIVE) 08/07/17 14:00 - Hospital Course Hospital Course: 71 year old male with a past medical history of hypertension, hyperlipidemia, diabetes mellitus, CAD (s/p 1 stent) and Urinary retention who comes in complaining of chest pain that began this morning at 7a.m. The patient reports waking up and headed to the bathroom when he had this shock like pain that began in his head and moved down to the left side of his chest and moved to the left arm. The patient soon after became diaphoretic. He also admits to having a headache, palpitations, double vision and headache in conjunction with the presenting symptoms. The patient reports having this same sensation in the past multiple of times. The last episode occurred 07/17/17 and at that point the symptoms shortly subsided after. The patient denies any nausea, vomiting, fevers, syncopal episodes, or any other complaints. Past medical history: hypertension, hyperlipidemia, Type 2 diabetes mellitus, urinary retention Medications: Lisinopril, Invocana, Aspirin, Lipitor, Metoprolol Allergies: Denies Past surgical history: Stent placement Social history: Lives with . Previous smoker over 40 years ago. Denies illicit drug use. PMD: Dr. Prasad Cardiology: Dr. Hinkle [facility] Course: Patient was admitted and tests were run. He was found to have SVT in the emergency department and was given 6mg of Adenosine. Symptoms subsided and heart rate became normal after administration. He had a troponins drawn and initially they were negative however the follow troponin became elevated. A stat ekg was ordered and Cardiology was called. Patient was started on therapeutic Lovenox. Patient was examined and was asymptomatic. Following troponin was .5 and trending down. Cardiology saw and examined him and determined he was ok to follow up as an outpatient within one week. Imagin. Echocardiogram: taken, pending final read. 2.EKG: SVT Discharge Instructions: 1. F/u with PMD within one week of discharge. 2. F/u with Dr. Huff Entry Level Staff Accountant within one week of discharge for nuclear stress stress and EP evaluation for ablation of SVT to be arranged. 3. Metoprolol restrepo was increased to 75mg PO BID per recommendations of Cardiology. New perscription was given. 4. Advised patient to return to hospital for any new or worsening symptoms. Discharge Exam - Head Exam Head Exam: ATRAUMATIC, NORMAL INSPECTION, NORMOCEPHALIC Discharge Plan - Discharge Medications Prescriptions: Metoprolol Tartrate 75 mg PO BID #60 tablet - Follow Up Plan Condition: STABLE Disposition: HOME/ ROUTINE Instructions: Cardiac Stress Test, Heart Healthy Diet, Chest Pain (DC), Supraventricular Tachycardia (SVT), Cardiac Catheter Ablation (DC) Additional Instructions: 1. F/u with PMD within one week of discharge. 2. F/u with Dr. Huff Entry Level Staff Accountant within one week of discharge for nuclear stress stress and EP evaluation for ablation of SVT to be arranged. 3. Metoprolol restrepo was increased to 75mg PO BID per recommendations of Cardiology. New perscription was given. 4. Advised patient to return to hospital for any new or worsening symptoms. Referrals: Jc Mg MD [Staff Provider] - FAMILY PROVIDER,NO [Primary Care Provider] - <Anton Louise - Last Filed: 08/08/17 16:41> Provider - Provider Date of Admission: 08/07/17 13:14 Attending physician: Narcisa Sherman MD Primary care physician: NO FAMILY PROVIDER Hospital Course - Lab Results Lab Results: Most Recent Lab Values WBC 9.7 10^3/ul (4.5-11.0) 08/08/17 06:00 RBC 4.43 10^6/uL (3.5-6.1) 08/08/17 06:00 Hgb 12.9 g/dL (14.0-18.0) L 08/08/17 06:00 Hct 37.7 % (42.0-52.0) L 08/08/17 06:00 MCV 85.1 fl (80.0-105.0) 08/08/17 06:00 MCH 29.1 pg (25.0-35.0) 08/08/17 06:00 MCHC 34.2 g/dl (31.0-37.0) 08/08/17 06:00 RDW 16.4 % (11.5-14.5) H 08/08/17 06:00 Plt Count 204 10^3/uL (120.0-450.0) 08/08/17 06:00 MPV 10.9 fl (7.0-11.0) 08/08/17 06:00 Gran % 44.2 % (50.0-68.0) L 08/08/17 06:00 Lymph % (Auto) 31.4 % (22.0-35.0) 08/08/17 06:00 [place] % (Auto) 7.2 % (1.0-6.0) H 08/08/17 06:00 Eos % (Auto) 16.2 % (1.5-5.0) H 08/08/17 06:00 Baso % (Auto) 1.0 % (0.0-3.0) 08/08/17 06:00 Gran # 4.29 (1.4-6.5) 08/08/17 06:00 Lymph # (Auto) 3.1 (1.2-3.4) 08/08/17 06:00 [place] # (Auto) 0.7 (0.1-0.6) H 08/08/17 06:00 Eos # (Auto) 1.6 (0.0-0.7) H 08/08/17 06:00 Baso # (Auto) 0.10 K/mm3 (0.0-2.0) 08/08/17 06:00 PT 11.8 SECONDS (9.4-12.5) 08/07/17 11:25 INR 1.03 (0.93-1.08) 08/07/17 11:25 APTT 31.5 Seconds (25.1-36.5) 08/07/17 11:25 Sodium 144 mmol/L (132-148) 08/08/17 06:00 Potassium 4.2 mmol/L (3.6-5.0) 08/08/17 06:00 Chloride 106 mmol/L (98-107) 08/08/17 06:00 Carbon Dioxide 24 mmol/L (21-33) 08/08/17 06:00 Anion Gap 18 (10-20) 08/08/17 06:00 BUN 22 mg/dL (7-21) H 08/08/17 06:00 Creatinine 0.8 mg/dl (0.8-1.5) 08/08/17 06:00 Est GFR ( Amer) > 60 08/08/17 06:00 Est GFR (Non-Af Amer) > 60 08/08/17 06:00 POC Glucose (mg/dL) 131 mg/dL (65-110) H 08/08/17 11:10 Random Glucose 107 mg/dL (70-110) 08/08/17 06:00 Calcium 9.1 mg/dL (8.4-10.5) 08/08/17 06:00 Phosphorus 3.2 mg/dL (2.5-4.5) 08/08/17 06:00 Magnesium 1.7 mg/dL (1.7-2.2) 08/08/17 06:00 Total Bilirubin 0.5 mg/dL (0.2-1.3) 08/08/17 06:00 AST 31 U/L (17-59) 08/08/17 06:00 ALT 52 U/L (7-56) 08/08/17 06:00 Alkaline Phosphatase 80 U/L (38-126) 08/08/17 06:00 Lactate Dehydrogenase 379 U/L (333-699) 08/07/17 11:25 Total Creatine Kinase 80 U/L (35-230) 08/07/17 11:25 Troponin I 0.50 ng/mL H* 08/08/17 00:35 Total Protein 7.6 g/dL (5.8-8.3) 08/08/17 06:00 Albumin 4.2 g/dL (3.0-4.8) 08/08/17 06:00 Globulin 3.5 gm/dL 08/08/17 06:00 Albumin/Globulin Ratio 1.2 (1.1-1.8) 08/08/17 06:00 Triglycerides 104 mg/dL (35-160) 08/07/17 11:25 Cholesterol 113 mg/dL (130-200) L 08/07/17 11:25 LDL Cholesterol Direct 49 mg/dL (0-129) 08/07/17 11:25 HDL Cholesterol 40 mg/dL (29-60) 08/07/17 11:25 TSH 3rd Generation 3.05 mIU/mL (0.46-4.68) 08/07/17 11:25 Urine Color Yellow (YELLOW) 08/07/17 14:00 Urine Appearance Clear (CLEAR) 08/07/17 14:00 Urine pH 6.0 (4.7-8.0) 08/07/17 14:00 Ur Specific [place] <= 1.005 (1.005-1.035) 08/07/17 14:00 Urine Protein Negative mg/dL (<30 mg/dL) 08/07/17 14:00 Urine Glucose (UA) >=1000 mg/dL (NEGATIVE) 08/07/17 14:00 Urine Ketones Negative mg/dL (NEGATIVE) 08/07/17 14:00 Urine Blood Negative (NEGATIVE) 08/07/17 14:00 Urine Nitrate Negative (NEGATIVE) 08/07/17 14:00 Urine Bilirubin Negative (NEGATIVE) 08/07/17 14:00 Urine Urobilinogen 0.2 E.U./dL (<1 E.U./dL) 08/07/17 14:00 Ur Leukocyte Esterase Negative [facility]/uL (NEGATIVE) 08/07/17 14:00 Attending/Attestation - Attestation I have personally seen and examined this patient.: Yes I have fully participated in the care of the patient.: Yes I have reviewed all pertinent clinical information, including history, physical exam and plan: Yes Notes (Text): Patient seen and examined with the residents. Agree with above Currently asymptomatic. SVT that broke with Adenosine Cardio consultation appreciated. Increased dosage of bblockade Outpt f/u in 1 week
[2017-08-08 17:03] VITALS: PULSE 57
--- NOTE | 2017-08-09 10:13 | CARD ---
APPROVED REPORT EXAM: Two-dimensional and M-mode echocardiogram with Doppler and color Doppler. Other Information Quality : AverageRhythm : INDICATION NEW ONSET SVT, + Trops. 2D DIMENSIONS Left Atrium (2D)3.5 (1.6-4.0cm)IVSd1.3 (0.7-1.1cm) LVDd4.6 (3.9-5.9cm)PWd1.3 (0.7-1.1cm) LVDs3.4 (2.5-4.0cm)FS (%) 20.1 % LVEF (%)50.0 (>50%) M-Mode DIMENSIONS Aortic Root3.60 (2.2-3.7cm)Aortic Cusp Exc.1.20 (1.5-2.0cm) Aortic Valve AoV Peak Wctzipqm208.0cm/sAoV VTI39.9cmAO Peak GR.13mmHg LVOT Peak Mimewihi56.0cm/sLVOT VTI18.20cmAO Mean GR.8mmHg Mitral Valve MV E Aulnxwpd05.9cm/sMV A Nszrilaw44.3cm/sE/A ratio0.5 TDI Lateral E' Peak V6.24cm/sMedial E' Peak V3.02cm/sE/Lateral E'8.0 E/Medial E'16.5 Pulmonary Valve PV Peak Xpjduter55.2cm/sPV Peak Grad.2mmHg Tricuspid Valve TR Peak Bblmskoi108hq/sRAP HSCKOXHT56taNbHK Peak Gr.19mmHg OGZW30dmSn LEFT VENTRICLE The left ventricle is normal size. There is normal left ventricular wall thickness. The left ventricular function is normal. The left ventricular ejection fraction is within the normal range. There is normal LV segmental wall motion. RIGHT VENTRICLE The right ventricle is normal size. ATRIA The left atrium size is normal. The right atrium size is normal. The interatrial septum is intact with no evidence for an atrial septal defect. AORTIC VALVE The aortic valve is not well visualized. The aortic valve is mildly to moderately calcified. MITRAL VALVE The mitral valve is normal in structure. Mitral annular calcification is mild to moderate. Mitral regurgitation is trace. TRICUSPID VALVE The tricuspid valve is normal in structure. There is trace tricuspid regurgitation. GREAT VESSELS The aortic root is normal in size. PERICARDIAL EFFUSION There is no pericardial effusion. <Conclusion> The left ventricle is normal size. There is normal left ventricular wall thickness. The left ventricular function is normal. The aortic valve is not well visualized. The aortic valve is mildly to moderately calcified. Aortic sclerosis vs. mild .
== END 2017-08-08 16:56 | disposition home or self-care (01) ==
LOC: ED 11:00 → ERH 13:14 → 3RSO 17:04
PROVIDERS: ADMIT Internal Medicine; ATTEND Internal Medicine
DX: I47.1 Supraventricular tachycardia (principal); E11.9 Type 2 diabetes mellitus without complications; E78.5 Hyperlipidemia, unspecified; H53.2 Diplopia; I10 Essential (primary) hypertension; I25.10 Atherosclerotic heart disease of native coronary artery without angina pectoris; Z98.61 Coronary angioplasty status; I25.2 Old myocardial infarction; Z79.82 Long term (current) use of aspirin; Z87.891 Personal history of nicotine dependence; R40.2412 Glasgow coma scale score 13-15, at arrival to emergency department; R33.9 Retention of urine, unspecified
CPT/HCPCS: 36415; 71045; 80053; 80061; 81003; 82550; 82948; 83036; 83615; 83735; 84100; 84443; 84484; 85025; 85610; 85730; 93005; 93306; 96372; 96374; 99283; G0378; J0153; J1650; J7040

== ENCOUNTER 2017-12-06 15:07 | Inpatient (IN) | payer MEDICARE ==
[2017-12-06 15:44] VITALS: BMI 21.8
--- NOTE | 2017-12-06 16:29 | ED PDOC ---
Arrival/HPI - General Chief Complaint: Abdominal Pain Time Seen by Provider: 12/06/17 15:53 Historian: Patient - History of Present Illness Narrative History of Present Illness (Text): 12/06/17 16:23 Patient is a 72 yo male presents with four day history of right lower quadrant abdominal pain. Patient states that he was moving his bowels and suddenly developed right lower abdominal pain four days ago. Pain is constant. Pain does not radiate. He denies vomiting or diarrhea. States he is eating normally. Denies any difficulty urinating. Patient states that he has lost seven pounds since last week. Denies chest pain or shortness of breath. Past Medical History - Past History Past History: No Previous - Infectious Disease Hx of Infectious Diseases: None - Cardiac Hx Cardiac Disorders: Yes (mi) Hx Hypertension: Yes - Pulmonary Hx Respiratory Disorders: No - Neurological Hx Neurological Disorder: No - HEENT Hx HEENT Disorder: No - Renal Hx Renal Disorder: No - Endocrine/Metabolic Hx Endocrine Disorders: Yes Hx Diabetes Mellitus Type 2: Yes - Hematological/Oncological Hx Blood Disorders: No - Integumentary Hx Dermatological Disorder: No - Musculoskeletal/Rheumatological Hx Musculoskeletal Disorders: No - Gastrointestinal Hx Gastrointestinal Disorders: No - Genitourinary/Gynecological Hx Genitourinary Disorders: Yes Hx Prostate Problems: Yes (enlarged on flomax, retention) - Psychiatric Hx Psychophysiologic Disorder: No Hx Substance Use: No - Surgical History Hx Cardiac Catheterization: Yes (x1 stent 2009) - Anesthesia Hx Anesthesia: Yes Hx Anesthesia Reactions: No Hx Malignant Hyperthermia: No - Suicidal Assessment Feels Threatened In Home Enviroment: No Family/Social History Family/Social History: Unknown Family HX Smoking Status: Never Smoked Hx Alcohol Use: Yes (occasional) Frequency of alcohol use: Socially Hx Substance Use: No Hx Substance Use Treatment: No Allergies/Home Meds Allergies/Adverse Reactions: Allergies No Known Allergies Allergy (Verified 12/06/17 15:44) Home Medications: Home Meds Medication Instructions Recorded Confirmed Atorvastatin Calcium [Lipitor] 80 mg PO DAILY 12/07/16 12/06/17 Isosorbide Mononitrate [Isosorbide 30 mg PO DAILY 12/07/16 12/06/17 Mononitrate ER] Lisinopril [Zestril] 20 mg PO DAILY 12/07/16 12/06/17 Aspirin [Ecotrin] 325 mg PO DAILY 08/07/17 12/06/17 Canagliflozin/Metformin HCl 1 tab PO BID 08/07/17 12/06/17 [Invokamet 150-1,000 mg Tablet] Cyanocobalamin [Vitamin B12] 500 mcg PO DAILY 12/06/17 12/06/17 Metoprolol Tartrate 75 mg PO BID 12/06/17 12/06/17 Review of Systems - Review of Systems Constitutional: Fatigue. absent: Fevers Eyes: absent: Vision Changes ENT: absent: Hearing Changes Respiratory: absent: SOB, Cough Cardiovascular: absent: Chest Pain Gastrointestinal: Abdominal Pain. absent: Constipation, Diarrhea, Nausea, Vomiting, Appetite Changes Genitourinary Male: absent: Dysuria, Frequency Musculoskeletal: absent: Back Pain, Neck Pain Skin: absent: Rash Neurological: absent: Headache, Dizziness, Focal Weakness Endocrine: absent: Polyuria Hemo/Lymphatic: absent: Easy Bleeding Physical Exam - Physical Exam Narrative Physical Exam (Text): 12/06/17 19:52 Head: Atraumatic. Normocephalic. Eyes: PERRL. EOMI. Conjunctivae are not pale. Anicteric. ENT: Mucous membranes are moist and intact. Oropharynx is clear and symmetric. Neck: Supple. Full ROM. No JVD. No lymphadenopathy. Cardiovascular: Regular rate. Regular rhythm. No murmurs, rubs, or gallops. Distal pulses are 2+ and symmetric. Pulmonary/Chest: No evidence of respiratory distress. Clear to auscultation bilaterally. No wheezing, rales or rhonchi. Abdominal: Soft and non-distended. Focal tenderness, moderate, to right lower quadrant. No rebound, guarding, or rigidity. No organomegaly. Good bowel sounds. No masses or hernias palpated. Geniturinary: no testicular erythema or edema Rectal: no gross bleeding Back: No CVA tenderness. Extremities: No edema. No cyanosis. No clubbing. Full range of motion in all extremities. No calf tenderness. Skin: Skin is warm and dry. No petechiae. No purpura. Neurological: Alert, awake, and oriented. Motor and sensory exam intact. Psychiatric: Good eye contact. Normal interaction, affect, and behavior. 12/06/17 21:31 Vital Signs Reviewed: Yes Vital Signs Temp Pulse Resp BP Pulse Ox 12/06/17 15:48 99.4 F 79 18 105/64 96 Temperature: Afebrile Appearance: Positive for: Uncomfortable Pain Distress: Moderate Medical Decision Making ED Course and Treatment: 12/06/17 21:32 Patient on examination with focal RLQ pain for four days. Denies fever or chills. Denies urinary symptoms. Denies change of appetite. Patient CT suggestive of colitis, possible right sided diverticulitis. CT reviewed with patient and family, limitations of imaging studies reviewed. On re-exam, he has stable blood pressure, cv stable. Pain persistent but no rebound or guarding. IV antibiotics initiated. Patient informed of ct findings and treatment plan. Will admit to hospitalist service, case d/w Dr. Claudette De La Torre, covering for hospitalist. Surgical consult requested by admitting team. 12/06/17 21:35 - RAD Interpretation Radiology Orders: 12/06/17 16:17 ABD & PELVIS IV CONTRAST ONLY [CT] Stat Disposition/Present on Arrival - Present on Arrival Any Indicators Present on Arrival: No History of DVT/PE: No History of Uncontrolled Diabetes: No Urinary Catheter: No History of Decub. Ulcer: No History Surgical Site Infection Following: None - Disposition Have Diagnosis and Disposition been Completed?: Yes Diagnosis: Diverticulitis, Abdominal pain, Colitis Disposition: HOSPITALIZED Disposition Time: 19:35 Patient Plan: Admission Patient Problems: Current Active Problems Problem Status Onset Abdominal pain Acute Colitis Acute Diverticulitis Acute Condition: FAIR
[2017-12-06 17:21] LABS: VENOUS BLOOD GAS BASE EXCESS 0.1 mmol/L (0.0-2.0); VENOUS BLOOD GAS PO2 42 mm/Hg (30-55); VENOUS BLOOD PH 7.36 (7.32-7.43)
[2017-12-06 17:24] LABS: BASO # 0.08 K/mm3 (0.0-2.0); BASO % 0.5 % (0.0-3.0); EOS # 0.9 (0.0-0.7); EOS % 5.8 % (1.5-5.0); GRAN # 10.4 (1.4-6.5); GRAN % 69.9 % (50.0-68.0); LYMPH # 1.8 (1.2-3.4); LYMPH % 12.3 % (22.0-35.0); MEAN CELL VOLUME 85.6 fl (80.0-105.0); MEAN CORPUSCULAR HEMOGLOBIN 29.7 pg (25.0-35.0); MEAN CORPUSCULAR HGB CONC 34.7 g/dl (31.0-37.0); MEAN PLATELET VOLUME 10.9 fl (7.0-11.0); MONO # 1.7 (0.1-0.6); MONO % 11.5 % (1.0-6.0); RBC 4.04 10^6/uL (3.5-6.1); RED CELL DISTRIBUTION WIDTH 15.1 % (11.5-14.5); WHITE BLOOD COUNT 14.9 10^3/ul (4.5-11.0)
[2017-12-06 17:29] LABS: URINE BILIRUBIN SMALL (NEGATIVE); URINE BLOOD NEGATIVE (NEGATIVE); URINE GLUCOSE (UA) >=1000 mg/dL (NEGATIVE); URINE PROTEIN 30 mg/dL (<30 mg/dL)
[2017-12-06 17:30] LABS: URINE APPEARANCE CLEAR (CLEAR); URINE COLOR LIGHT YELLOW (YELLOW); URINE LEUKOCYTE ESTERASE NEGATIVE Leu/uL (NEGATIVE)
[2017-12-06 17:35] LABS: INR 1.2; PARTIAL THROMBOPLASTIN TIME 29.9 Seconds (25.1-36.5); PROTHROMBIN TIME 13.7 SECONDS (9.4-12.5); URINE BACTERIA TRACE (NEG); URINE EPITHELIAL CELLS 0 - 2 /hpf (0-5); URINE RBC 0 - 2 /hpf (0-2); URINE WBC NEGATIVE /hpf (0-6)
[2017-12-06 17:57] LABS: ALBUMIN 3.8 g/dL (3.0-4.8); ALT/SGPT 25 U/L (7-56); AST/SGOT 29 U/L (17-59); BLOOD UREA NITROGEN 22 mg/dL (7-21); GFR NON-AFRICAN AMERICAN > 60
[2017-12-06] MEDS ORDERED: Iohexol 350 MG/100 ML VIAL ONE (18:08)
--- NOTE | 2017-12-06 18:58 | CT ---
Date of service: 12/06/2017 PROCEDURE: CT Abdomen and Pelvis with contrast HISTORY: rlq abdominal pain COMPARISON: None. TECHNIQUE: Following the intravenous administration of iodinated contrast material, a CT examination of the abdomen and pelvis performed from the domes of the diaphragms to the symphysis pubis with reformatted datasets provided in axial, sagittal and coronal planes. Oral contrast was not administered as per referring physician request. Coronal and sagittal reformats were generated. contrast dose: Omnipaque 350, 100 cc Radiation dose: Total exam DLP = 430.27 mGy-cm. FINDINGS: LOWER THORAX: Bibasilar dependent likes identified as well as linear atelectasis or fibrosis. Tiny calcified granuloma noted in the right lower lobe costophrenic sulcus region. LIVER: No hepatic mass identified with generally normal enhances seen throughout the liver. Mild central intrahepatic biliary dilatation is identified with common hepatic duct measuring 12.7 mm and the proximal common bile duct measures 11 mm. The midportion measures 8 mm with the distal segment measures 5 mm. No radiodense choledocholithiasis identified. GALLBLADDER AND BILE DUCTS: Moderate gallbladder distention without radiodense cholelithiasis appreciated. CBD described above and liver section. PANCREAS: Unremarkable. No gross lesion or ductal dilatation. SPLEEN: Unremarkable. ADRENALS: Unremarkable. No mass. KIDNEYS AND URETERS: Nonspecific bilateral perinephric reactive streaky changes are identified bilaterally. No obstructive uropathy or striated nephrogram bilaterally. A small lucency is seen at the mid pole left kidney too small to characterize but likely represents a cyst statistically. VASCULATURE: Unremarkable. No aortic aneurysm. BOWEL: Stomach is collapsed and poorly evaluated. Lack of oral contrast limits interpretation. There is gross thickening of the cecum which appears to spare the appendix which is partially filled with air and is prominent measuring up to 12 mm greatest transverse dimension in some areas but without definite perianal appendiceal reaction. The pattern is felt to represent segmental colitis affecting the cecum and proximal ascending colon. Occasional large diverticula are associated with descending colon in this could reflect a right-sided diverticulitis. Further clinical correlation advised. Prominent pericolic reaction is appreciate without abscess or fluid collection evident. APPENDIX: Normal appendix. PERITONEUM: Unremarkable. No free fluid. No free air. LYMPH NODES: Unremarkable. No enlarged lymph nodes. BLADDER: Unremarkable. REPRODUCTIVE: Enlarged prostate gland identified. BONES: Grade 1 spondylolisthesis L5-S1 with L5 minimally posterior to S1. Advanced degenerative disease L4-5 and L5-S1 with extensive vacuum disc changes associated. OTHER FINDINGS: None. IMPRESSION: 1. Findings suggesting segmental colitis affecting the cecum and proximal ascending colon in a pattern that may reflect right-sided diverticulitis without abscess or free air evident. The appendix is prominent but not does not exhibit inflammatory changes and appendicitis is not suspected. Clinically correlate further. 2. Mild dilatation of the central intrahepatic biliary tree and proximal to mid common bile duct without radiodense cholelithiasis or choledocholithiasis evident. Gallbladder mildly distended but otherwise nonacute appearing. 3. Enlarged prostate gland.
[2017-12-06] MEDS ORDERED: cefTRIAXone 1 gm 1 GM/100 ML BAG IVPB STA (19:09)
[2017-12-06] MEDS ORDERED: metroNIDAZOLE IV 500 mg/100 ml 500 MG/100 ML BAG IV ONE (19:12)
--- NOTE | 2017-12-06 21:10 | CP.PCM.HP ---
History of Present Illness - History of Present Illness History of Present Illness: Jed Fowler PGY1 History and Physical for Dr Wenceslao De La Torre Pt is a 72yo male with a PMH of HTN, DM, HLD, BPH, CAD who presents to the ED wi th a 4 day history of right lower quadrant pain, described as 9/10 constant sharp pain which does not radiate and developed suddenly. Pt reports having diarrhea at that time, but denies having blood in the stool. Pt has never had a colonoscopy or EGD. Pt states waling made the pain worse. He tried Ibuprofen but it did not help relieve the pain. He has not had any new foods, or sick contacts. This has never happened before. Pt has not had his appendix removed. Pt reports associated headache and chills. A 12 point ROS was obtained and added to the HPI where appropriate. PMH: urinary retention, CAD, DM, HTN, HLD PSH: Cardiac stent x1 9 years ago, hernia repair 8yo SH: Alcohol 3-4 beers/mo, tobacco quit 10 years ago, denies drug use FH: Mother 82, DM, HTN, "mainly heart problems" Father 86, DM, HTN All: NKDA PMD: Dr Navas Urologist: Dr Quick Cardio: Dr Mg Present on Admission - Present on Admission Any Indicators Present on Admission: No Review of Systems - Review of Systems Review of Systems: a 12 point ROS was obtained and added to the HPI where appropriate Past Patient History - Infectious Disease Hx of Infectious Diseases: None - Past Social History Smoking Status: Never Smoked - CARDIAC Hx Cardiac Disorders: Yes (mi) Hx Hypertension: Yes - PULMONARY Hx Respiratory Disorders: No - NEUROLOGICAL Hx Neurological Disorder: No - HEENT Hx HEENT Problems: No - RENAL Hx Chronic Kidney Disease: No - ENDOCRINE/METABOLIC Hx Endocrine Disorders: Yes Hx Diabetes Mellitus Type 2: Yes - HEMATOLOGICAL/ONCOLOGICAL Hx Blood Disorders: No - INTEGUMENTARY Hx Dermatological Problems: No - MUSCULOSKELETAL/RHEUMATOLOGICAL Hx Musculoskeletal Disorders: No - GASTROINTESTINAL Hx Gastrointestinal Disorders: No - GENITOURINARY/GYNECOLOGICAL Hx Genitourinary Disorders: Yes Hx Prostate Problems: Yes (enlarged on flomax, retention) - PSYCHIATRIC Hx Psychophysiologic Disorder: No Hx Substance Use: No - SURGICAL HISTORY Hx Cardiac Catheterization: Yes (x1 stent 2008) - ANESTHESIA Hx Anesthesia: Yes Hx Anesthesia Reactions: No Hx Malignant Hyperthermia: No Meds Allergies/Adverse Reactions: Allergies Allergy/AdvReac Type Severity Reaction Status Date / Time No Known Allergies Allergy Verified 12/06/17 15:44 Physical Exam - Head Exam Head Exam: ATRAUMATIC, NORMOCEPHALIC - ENT Exam ENT Exam: Mucous Membranes Moist - Respiratory Exam Respiratory Exam: Clear to Auscultation Bilateral, NORMAL BREATHING PATTERN. absent: Accessory Muscle Use - Cardiovascular Exam Cardiovascular Exam: RRR, +S1, +S2 - GI/Abdominal Exam Additional comments: tender to palpation in right lower quadrant - Extremities Exam Extremities exam: Negative for: pedal edema - Neurological Exam Neurological exam: Oriented x3 - Psychiatric Exam Psychiatric exam: Normal Affect, Normal Mood - Skin Skin Exam: Dry, Normal Color, Warm Results - Vital Signs Recent Vital Signs: Last Vital Signs Temp 99.4 F 12/06/17 15:48 Pulse 74 12/06/17 17:14 Resp 18 12/06/17 17:14 BP 107/63 12/06/17 17:14 Pulse Ox 96 12/06/17 17:14 - Labs Result Diagrams: 12/07/17 06:00 12/07/17 06:00 Labs: Laboratory Results - last 24 hr 12/06/17 12/06/17 12/06/17 17:08 17:08 17:08 WBC 14.9 H D RBC 4.04 Hgb 12.0 L Hct 34.6 L MCV 85.6 MCH 29.7 MCHC 34.7 RDW 15.1 H Plt Count 164 MPV 10.9 Gran % 69.9 H Lymph % (Auto) 12.3 L [place] % (Auto) 11.5 H Eos % (Auto) 5.8 H Baso % (Auto) 0.5 Gran # 10.40 H Lymph # (Auto) 1.8 [place] # (Auto) 1.7 H Eos # (Auto) 0.9 H Baso # (Auto) 0.08 PT 13.7 H INR 1.20 APTT 29.9 pO2 VBG pH VBG pCO2 VBG HCO3 VBG Total CO2 VBG O2 Sat (Calc) VBG Base Excess VBG Potassium Glucose Lactate FiO2 Sodium Potassium Chloride Carbon Dioxide Anion Gap BUN Creatinine Est GFR ( Amer) Est GFR (Non-Af Amer) Random Glucose Calcium Total Bilirubin AST ALT Alkaline Phosphatase Total Protein Albumin Globulin Albumin/Globulin Ratio Venous Blood Potassium Urine Color Light yellow Urine Appearance Clear Urine pH 6.0 Ur Specific Needles 1.025 Urine Protein 30 H Urine Glucose (UA) >=1000 Urine Ketones Trace H Urine Blood Negative Urine Nitrate Negative Urine Bilirubin Small H Urine Urobilinogen 2.0 H Ur Leukocyte Esterase Negative Urine RBC 0 - 2 Urine WBC Negative Ur Epithelial Cells 0 - 2 Urine Bacteria Trace 12/06/17 12/06/17 17:08 17:17 WBC RBC Hgb Hct MCV MCH MCHC RDW Plt Count MPV Gran % Lymph % (Auto) [place] % (Auto) Eos % (Auto) Baso % (Auto) Gran # Lymph # (Auto) [place] # (Auto) Eos # (Auto) Baso # (Auto) PT INR APTT pO2 42 VBG pH 7.36 VBG pCO2 46.0 VBG HCO3 26.0 VBG Total CO2 27.4 VBG O2 Sat (Calc) 82.7 H VBG Base Excess 0.1 VBG Potassium 4.5 Glucose 101 Lactate 1.0 FiO2 21.0 Sodium 139 136.0 Potassium 4.6 Chloride 103 105.0 Carbon Dioxide 25 Anion Gap 15 BUN 22 H Creatinine 1.0 Est GFR ( Amer) > 60 Est GFR (Non-Af Amer) > 60 Random Glucose 105 Calcium 9.0 Total Bilirubin 0.7 AST 29 ALT 25 Alkaline Phosphatase 84 Total Protein 7.5 Albumin 3.8 Globulin 3.7 Albumin/Globulin Ratio 1.0 L Venous Blood Potassium 4.5 Urine Color Urine Appearance Urine pH Ur Specific Needles Urine Protein Urine Glucose (UA) Urine Ketones Urine Blood Urine Nitrate Urine Bilirubin Urine Urobilinogen Ur Leukocyte Esterase Urine RBC Urine WBC Ur Epithelial Cells Urine Bacteria Assessment & Plan - Assessment and Plan (Free Text) Assessment: Pt is a 72yo male with a PMH of HTN, DM, HLD, BPH, CAD who presents to the ED with a 4 day history of right lower quadrant pain, described as 9/10 constant sharp pain which does not radiate and developed suddenly. Plan: Abdominal pain - likely secondary to right sided diverticulitis - doubt appendicitis - follow up blood cultures, stool cultures, fecal leukocytes, FOBT - NPO diet - continue flagyl - continue Rocephin - IVF NS100 - CTAP: suggestive of segmental colitis of cecum and proximal ascending colon, may reflect right sided diverticulitis without abscess or free air, appendix is prominent, but appendicitis is not suspected. Mild dilation of the central intrahepatic biliary tree and prox mid common bile duct, gallbladder mildly distended but nonacute appearing - GI consulted, Dr Salas - Surgery consulted, Dr Gunn HTN - lisinopril HLD - continue home lipitor DM - ISS - accuchecks BPH - flomax Ppx - SCD Pt seen, examined, assessment and plan discussed with Dr Wenceslao Fowler PGY1 - Date & Time Date: 12/06/17 Time: 23:33
[2017-12-06] MEDS ORDERED: Sodium Chloride 0.9% 1,000 ML IV SCH (21:15)
[2017-12-06] MEDS: Insulin Reg-LOW-Coverage SC SCH (22:10)
--- NOTE | 2017-12-06 23:26 | CARD ---
APPROVED REPORT Date of service: 12/06/2017 EKG Measurement Heart [id number] <Conclusion> Normal sinus rhythm Nonspecific T wave abnormality Abnormal ECG
[2017-12-07] MEDS: metroNIDAZOLE IV 500 mg/100 ml 500 MG/100 ML BAG IVPB SCH ×3 (05:34→22:31)
[2017-12-07 06:46] LABS: BASO # 0.08 K/mm3 (0.0-2.0); BASO % 0.6 % (0.0-3.0); EOS # 1.2 (0.0-0.7); EOS % 8.9 % (1.5-5.0); GRAN # 9.47 (1.4-6.5); GRAN % 69.4 % (50.0-68.0); HEMOGLOBIN 11.4 g/dL (14.0-18.0); LYMPH # 1.4 (1.2-3.4); MEAN CELL VOLUME 85.1 fl (80.0-105.0); MEAN CORPUSCULAR HEMOGLOBIN 29.2 pg (25.0-35.0); MEAN CORPUSCULAR HGB CONC 34.3 g/dl (31.0-37.0); MEAN PLATELET VOLUME 10.2 fl (7.0-11.0); MONO # 1.5 (0.1-0.6); MONO % 11.1 % (1.0-6.0); RBC 3.9 10^6/uL (3.5-6.1); RED CELL DISTRIBUTION WIDTH 15.4 % (11.5-14.5); WHITE BLOOD COUNT 13.7 10^3/ul (4.5-11.0)
[2017-12-07] MEDS: Dextrose 5%/0.9% NS 1,000 ML IV SCH ×2 (06:49→18:10)
--- NOTE | 2017-12-07 07:09 | CP.PCM.PN ---
<Lynette Ellington - Last Filed: 12/07/17 10:30> Subjective - Date & Time of Evaluation Date of Evaluation: 12/07/17 Time of Evaluation: 07:09 - Subjective Subjective: Pgy3 Progress note for Dr. Frost Patient seen and examined at bedside with attending. Patient reported he still had some RLQ abdominal pain but it had improved since admission. No acute events overnight as per nursing. Patient denied any acute complaints of headache, fever, chills, chest pain, SOB, nausea, vomiting, bowel/bladder complaints, pain/swelling in his legs b/l. He is ambulating to the bathroom. Patient has been NPO overnight but is hungry, has a dry mouth, and is eager to be started on a diet. He was told he can have ice chips and see how he tolerates and likely CLD for dinner. Patient is urinating well but has not had a BM Objective - Vital Signs/Intake and Output Vital Signs (last 24 hours): Temp Pulse Resp BP Pulse Ox 99 F 73 20 122/69 95 12/06/17 21:11 12/06/17 22:12 12/06/17 22:30 12/06/17 22:12 12/06/17 22:12 Intake and Output: 12/07/17 12/07/17 06:59 18:59 Intake Total 1100 Balance 1100 - Medications Medications: Current Medications Aspirin (Ecotrin) 325 mg PO DAILY [facility] Atorvastatin Calcium (Lipitor) 80 mg PO DAILY [facility] Metronidazole (Flagyl) 500 mg in 100 mls @ 100 mls/hr IVPB Q8 [facility]; Protocol Last Admin: 12/07/17 05:34 Dose: 100 mls/hr Ceftriaxone Sodium (Rocephin 1 Gram Ivpb) 1 gm in 100 mls @ 100 mls/hr IVPB KIEL LY [facility]; Protocol Dextrose/Sodium Chloride (Dextrose 5%/0.9% Ns 1000 Ml) 1,000 mls @ 100 mls/hr IV .Q10H [facility] Last Admin: 12/07/17 06:49 Dose: 100 mls/hr Insulin Human Regular (Humulin R Low) 0 units SC ACHS [facility]; Protocol Last Admin: 12/06/17 22:10 Dose: Not Given Lisinopril (Zestril) 10 mg PO DAILY [facility] Pantoprazole Sodium (Protonix Inj) 40 mg IVP DAILY [facility] Tamsulosin HCl (Flomax) 0.4 mg PO DAILY [facility] - Labs Labs: 12/07/17 06:00 12/06/17 17:08 PT 13.7 SECONDS (9.4-12.5) H 12/06/17 17:08 INR 1.20 12/06/17 17:08 APTT 29.9 Seconds (25.1-36.5) 12/06/17 17:08 - Constitutional Appears: Non-toxic, No Acute Distress - Head Exam Head Exam: ATRAUMATIC, NORMAL INSPECTION, NORMOCEPHALIC - Eye Exam Eye Exam: EOMI, Normal appearance, PERRL. absent: Conjunctival injection, Scleral icterus Pupil Exam: NORMAL ACCOMODATION - ENT Exam ENT Exam: Mucous Membranes Dry - Neck Exam Neck Exam: Full ROM - Respiratory Exam Respiratory Exam: Clear to Ausculation Bilateral, NORMAL BREATHING PATTERN. absent: Accessory Muscle Use, Rales, Rhonchi, Wheezes, Respiratory Distress - Cardiovascular Exam Cardiovascular Exam: RRR, +S1, +S2 - GI/Abdominal Exam GI & Abdominal Exam: Soft, Tenderness (R sided), Normal Bowel Sounds. absent: Firm, Guarding, Rigid - Extremities Exam Extremities Exam: Normal Capillary Refill, Normal Inspection. absent: Pedal Edema - Back Exam Back Exam: NORMAL INSPECTION. absent: rash noted - Neurological Exam Neurological Exam: Alert, Awake, CN II-XII Intact, Normal Gait, Oriented x3 - Psychiatric Exam Psychiatric exam: Normal Affect, Normal Mood - Skin Skin Exam: Dry, Intact, Normal Color, Warm Assessment and Plan - Assessment and Plan (Free Text) Assessment: 72yo male with a PMH of HTN, DM, HLD, BPH, CAD who presents to the ED with a 4 day history of right lower quadrant pain. CT A/P showed evidence of segmental colitis of cecum and proximal ascending colon reflecting right sided diverticulitis without abscess or free air. Patient admitted to med/surg and GI and Surgery were consulted Plan: R sided diverticulitis - CTAP: suggestive of segmental colitis of cecum and proximal ascending colon, may reflect right sided diverticulitis without abscess or free air, appendix is prominent, but appendicitis is not suspected. Mild dilation of the central intrahepatic biliary tree and prox mid common bile duct, gallbladder mildly distended but nonacute appearing - low suspicion for appendicitis as per surgical team - continue abx Rocephin and Flagyl - NPO- ADAT- CLD for dinner tonight - follow up blood cultures, stool cultures, fecal leukocytes, FOBT - D5NS @ 100 - GI consulted, Dr Salas - Surgery consulted, Dr Gunn Hx of HTN - lisinopril 10mg po qd - maintain normotension Hx of HLD - continue home lipitor 80mg po qd Hx of DM2 - ISS - accuchecks Hx of BPH - continue home flomax 0.4mg po qd GI ppx: Protonix 40mg ivp qd DVT ppx: SCD Diet: NPO- ADAT- CLD for dinner tonight Discussed with Dr. Margot Ellington PGY3 <Iva Frost - Last Filed: 12/08/17 11:40> Objective - Vital Signs/Intake and Output Vital Signs (last 24 hours): Temp Pulse Resp BP Pulse Ox 98.3 F 69 20 153/79 H 97 12/08/17 08:40 12/08/17 09:50 12/08/17 08:40 12/08/17 09:50 12/08/17 08:40 - Medications Medications: Current Medications Aspirin (Ecotrin) 325 mg PO DAILY [facility] Last Admin: 12/08/17 09:49 Dose: 325 mg Atorvastatin Calcium (Lipitor) 80 mg PO DAILY [facility] Last Admin: 12/08/17 09:50 Dose: 80 mg Metronidazole (Flagyl) 500 mg in 100 mls @ 100 mls/hr IVPB Q8 [facility]; Protocol Last Admin: 12/08/17 05:41 Dose: 100 mls/hr Ceftriaxone Sodium (Rocephin 1 Gram Ivpb) 1 gm in 100 mls @ 100 mls/hr IVPB DAILY [facility]; Protocol Last Admin: 12/08/17 09:50 Dose: 100 mls/hr Insulin Human Regular (Humulin R Low) 0 units SC ACHS [facility]; Protocol Last Admin: 12/08/17 08:30 Dose: Not Given Lisinopril (Zestril) 10 mg PO DAILY [facility] Last Admin: 12/08/17 09:50 Dose: 10 mg Pantoprazole Sodium (Protonix Inj) 40 mg IVP DAILY [facility] Last Admin: 12/08/17 09:49 Dose: 40 mg Tamsulosin HCl (Flomax) 0.4 mg PO DAILY [facility] Last Admin: 12/08/17 09:50 Dose: 0.4 mg - Labs Labs: 12/08/17 06:30 12/08/17 06:30 PT 13.7 SECONDS (9.4-12.5) H 12/06/17 17:08 INR 1.20 12/06/17 17:08 APTT 29.9 Seconds (25.1-36.5) 12/06/17 17:08 Attending/Attestation - Attestation I have personally seen and examined this patient.: Yes I have fully participated in the care of the patient.: Yes I have reviewed all pertinent clinical information, including history, physical exam and plan: Yes Notes (Text): 12/08/17 11:37 Attending note; Patient seen and examined with resident. Patient is alert, awake. Complaining of right lower quadrant abdominal pain. Denies any fevers, chills. Denies any nausea, vomiting. Did not have a bowel movement for 2 days because of poor by mouth intake. Patient is a 72 year-old male with a PMH of HTN, DM, HLD, BPH, CAD who presents to the ED with a 4 day history of right lower quadrant pain. CT A/P showed evidence of segmental colitis of cecum and proximal ascending colon reflecting right sided diverticulitis without abscess or free air. Surgery evaluation appreciated. Patient was evaluated by GI. Continue IV Rocephin and Flagyl. Started on clear liquid diet. Needs outpatient colonoscopy. Hypertension; continue lisinopril. Hypercholesterolemia; continue Lipitor. BPH; continue Flomax. Upon discharge the patient will follow-up with PMD Dr. Prasad. Needs close GI follow-up for colonoscopy.
--- NOTE | 2017-12-07 07:10 | CP.PCM.CON ---
<Asia Buitrago - Last Filed: 12/07/17 08:21> History of Present Illness - History of Present Illness History of Present Illness: General Surgery consult note for Dr. Gunn consulted for Diverticulitis possible appendicitis HPI: patient is a 72 yo M with PMH HTN HLD DM BPH CAD (1 stent 9yrs ago) who present with 5 days of crampy RLQ abdominal pain associated with chills and Diarrhea (last BM 10/4 AM) but no n/v or blood in stool. Patient denies any previous episodes and additionally denies JORGE, CP, SOB, dysuria, bloody stool or emesis. PMH: urinary retention, CAD, DM, HTN, HLD PSH: Cardiac stent x1 9 years ago, hernia repair 8yo SH: Alcohol 3-4 beers/mo, tobacco quit 10 years ago, denies drug use FH: Mother 82, DM, HTN, "mainly heart problems" Father 86, DM, HTN All: NKDA PMD: Dr Navas Urologist: Dr Quick Cardio: Dr Mg Review of Systems - Review of Systems All systems: reviewed and no additional remarkable complaints except (as per HPI) Past Patient History - Infectious Disease Hx of Infectious Diseases: None - Past Social History Smoking Status: Never Smoked - CARDIAC Hx Cardiac Disorders: Yes (mi) Hx Hypertension: Yes - PULMONARY Hx Respiratory Disorders: No - NEUROLOGICAL Hx Neurological Disorder: No - HEENT Hx HEENT Problems: No - RENAL Hx Chronic Kidney Disease: No - ENDOCRINE/METABOLIC Hx Endocrine Disorders: Yes Hx Diabetes Mellitus Type 2: Yes - HEMATOLOGICAL/ONCOLOGICAL Hx Blood Disorders: No - INTEGUMENTARY Hx Dermatological Problems: No - MUSCULOSKELETAL/RHEUMATOLOGICAL Hx Musculoskeletal Disorders: No - GASTROINTESTINAL Hx Gastrointestinal Disorders: No - GENITOURINARY/GYNECOLOGICAL Hx Genitourinary Disorders: Yes Hx Prostate Problems: Yes (enlarged on flomax, retention) - PSYCHIATRIC Hx Psychophysiologic Disorder: No Hx Substance Use: No - SURGICAL HISTORY Hx Cardiac Catheterization: Yes (x1 stent 2009) - ANESTHESIA Hx Anesthesia: Yes Hx Anesthesia Reactions: No Hx Malignant Hyperthermia: No Meds Allergies/Adverse Reactions: Allergies Allergy/AdvReac Type Severity Reaction Status Date / Time No Known Allergies Allergy Verified 12/06/17 15:44 - Medications Medications: Current Medications Aspirin (Ecotrin) 325 mg PO DAILY [facility] Atorvastatin Calcium (Lipitor) 80 mg PO DAILY [facility] Metronidazole (Flagyl) 500 mg in 100 mls @ 100 mls/hr IVPB Q8 [facility]; Protocol Last Admin: 12/07/17 05:34 Dose: 100 mls/hr Ceftriaxone Sodium (Rocephin 1 Gram Ivpb) 1 gm in 100 mls @ 100 mls/hr IVPB DAILY [facility]; Protocol Dextrose/Sodium Chloride (Dextrose 5%/0.9% Ns 1000 Ml) 1,000 mls @ 100 mls/hr IV .Q10H [facility] Last Admin: 12/07/17 06:49 Dose: 100 mls/hr Insulin Human Regular (Humulin R Low) 0 units SC ACHS [facility]; Protocol Last Admin: 12/06/17 22:10 Dose: Not Given Lisinopril (Zestril) 10 mg PO DAILY [facility] Pantoprazole Sodium (Protonix Inj) 40 mg IVP DAILY [facility] Tamsulosin HCl (Flomax) 0.4 mg PO DAILY [facility] Physical Exam - Constitutional Appears: Well, Non-toxic, No Acute Distress - Head Exam Head Exam: ATRAUMATIC, NORMOCEPHALIC - Eye Exam Eye Exam: EOMI - ENT Exam ENT Exam: Mucous Membranes Moist - Respiratory Exam Respiratory Exam: NORMAL BREATHING PATTERN - Cardiovascular Exam Cardiovascular Exam: REGULAR RHYTHM - GI/Abdominal Exam GI & Abdominal Exam: Guarding (RLQ), Hernia (small umbilical hernia), Normal Bowel Sounds, Soft, Tenderness (RLQ, + Rovsing, - Obturator and Psoas signs). absent: Distended, Rebound, Rigid - Extremities Exam Extremities exam: Positive for: pedal pulses present. Negative for: calf tenderness, pedal edema, tenderness - Neurological Exam Neurological exam: Alert, Oriented x3 - Psychiatric Exam Psychiatric exam: Normal Affect, Normal Mood - Skin Skin Exam: Dry, Intact, Normal Color, Warm Results - Vital Signs Recent Vital Signs: Last Vital Signs Temp 99 F 12/06/17 21:11 Pulse 73 12/06/17 22:12 Resp 20 12/06/17 22:30 BP 122/69 12/06/17 22:12 Pulse Ox 95 12/06/17 22:12 - Labs Result Diagrams: 12/07/17 06:00 12/07/17 06:00 Labs: Laboratory Results - last 24 hr 12/06/17 12/06/17 12/06/17 17:08 17:08 17:08 WBC 14.9 H D RBC 4.04 Hgb 12.0 L Hct 34.6 L MCV 85.6 MCH 29.7 MCHC 34.7 RDW 15.1 H Plt Count 164 MPV 10.9 Gran % 69.9 H Lymph % (Auto) 12.3 L [place] % (Auto) 11.5 H Eos % (Auto) 5.8 H Baso % (Auto) 0.5 Gran # 10.40 H Lymph # (Auto) 1.8 [place] # (Auto) 1.7 H Eos # (Auto) 0.9 H Baso # (Auto) 0.08 PT 13.7 H INR 1.20 APTT 29.9 pO2 VBG pH VBG pCO2 VBG HCO3 VBG Total CO2 VBG O2 Sat (Calc) VBG Base Excess VBG Potassium Glucose Lactate FiO2 Sodium Potassium Chloride Carbon Dioxide Anion Gap BUN Creatinine Est GFR ( Amer) Est GFR (Non-Af Amer) POC Glucose (mg/dL) Random Glucose Calcium Total Bilirubin AST ALT Alkaline Phosphatase Total Protein Albumin Globulin Albumin/Globulin Ratio Venous Blood Potassium Urine Color Light yellow Urine Appearance Clear Urine pH 6.0 Ur Specific [place] 1.025 Urine Protein 30 H Urine Glucose (UA) >=1000 Urine Ketones Trace H Urine Blood Negative Urine Nitrate Negative Urine Bilirubin Small H Urine Urobilinogen 2.0 H Ur Leukocyte Esterase Negative Urine RBC 0 - 2 Urine WBC Negative Ur Epithelial Cells 0 - 2 Urine Bacteria Trace 12/06/17 12/06/17 12/06/17 17:08 17:17 22:09 WBC RBC Hgb Hct MCV MCH MCHC RDW Plt Count MPV Gran % Lymph % (Auto) [place] % (Auto) Eos % (Auto) Baso % (Auto) Gran # Lymph # (Auto) [place] # (Auto) Eos # (Auto) Baso # (Auto) PT INR APTT pO2 42 VBG pH 7.36 VBG pCO2 46.0 VBG HCO3 26.0 VBG Total CO2 27.4 VBG O2 Sat (Calc) 82.7 H VBG Base Excess 0.1 VBG Potassium 4.5 Glucose 101 Lactate 1.0 FiO2 21.0 Sodium 139 136.0 Potassium 4.6 Chloride 103 105.0 Carbon Dioxide 25 Anion Gap 15 BUN 22 H Creatinine 1.0 Est GFR ( Amer) > 60 Est GFR (Non-Af Amer) > 60 POC Glucose (mg/dL) 74 Random Glucose 105 Calcium 9.0 Total Bilirubin 0.7 AST 29 ALT 25 Alkaline Phosphatase 84 Total Protein 7.5 Albumin 3.8 Globulin 3.7 Albumin/Globulin Ratio 1.0 L Venous Blood Potassium 4.5 Urine Color Urine Appearance Urine pH Ur Specific [place] Urine Protein Urine Glucose (UA) Urine Ketones Urine Blood Urine Nitrate Urine Bilirubin Urine Urobilinogen Ur Leukocyte Esterase Urine RBC Urine WBC Ur Epithelial Cells Urine Bacteria 12/07/17 12/07/17 02:29 06:00 WBC 13.7 H RBC 3.90 Hgb 11.4 L Hct 33.2 L MCV 85.1 MCH 29.2 MCHC 34.3 RDW 15.4 H Plt Count 159 MPV 10.2 Gran % 69.4 H Lymph % (Auto) 10.0 L [place] % (Auto) 11.1 H Eos % (Auto) 8.9 H Baso % (Auto) 0.6 Gran # 9.47 H Lymph # (Auto) 1.4 [place] # (Auto) 1.5 H Eos # (Auto) 1.2 H Baso # (Auto) 0.08 PT INR APTT pO2 VBG pH VBG pCO2 VBG HCO3 VBG Total CO2 VBG O2 Sat (Calc) VBG Base Excess VBG Potassium Glucose Lactate FiO2 Sodium Potassium Chloride Carbon Dioxide Anion Gap BUN Creatinine Est GFR ( Amer) Est GFR (Non-Af Amer) POC Glucose (mg/dL) 77 Random Glucose Calcium Total Bilirubin AST ALT Alkaline Phosphatase Total Protein Albumin Globulin Albumin/Globulin Ratio Venous Blood Potassium Urine Color Urine Appearance Urine pH Ur Specific [place] Urine Protein Urine Glucose (UA) Urine Ketones Urine Blood Urine Nitrate Urine Bilirubin Urine Urobilinogen Ur Leukocyte Esterase Urine RBC Urine WBC Ur Epithelial Cells Urine Bacteria Assessment & Plan - Assessment and Plan (Free Text) Assessment: 72 yr old male with PMH HTN, HLD, DM, BPH presents with Diverticulitis of the ascending colon, clinical course not consistent with appendicitis, radiology impression not consistent with appendicitis Plan: Abdominal Pain/ Diverticulitis - likely secondary to right sided diverticulitis - doubt appendicitis, clinical course and CT findings not consistent with appendicitis - follow up blood cultures, stool cultures, fecal leukocytes, FOBT - NPO diet - continue flagyl - continue Rocephin - IVF NS100 - CTAP: suggestive of segmental colitis of cecum and proximal ascending colon, may reflect right sided diverticulitis without abscess or free air, appendix is prominent, but appendicitis is not suspected. Mild dilation of the central intrahepatic biliary tree and prox mid common bile duct, gallbladder mildly distended but nonacute appearing - GI consulted, Dr Salas - conservative management at this time, recommend outpatient follow up for colonoscopy Patient discussed with Dr. Gunn, all further recs per him Asia Buitrago, PGY 1 - Date & Time Date: 12/06/17 Time: 21:30 <Blake Gunn - Last Filed: 12/08/17 18:55> Meds - Medications Medications: Current Medications Acetaminophen (Tylenol 325mg Tab) 650 mg PO Q6H PRN PRN Reason: Fever >100.4 F Aspirin (Ecotrin) 325 mg PO DAILY [facility] Last Admin: 12/08/17 09:49 Dose: 325 mg Atorvastatin Calcium (Lipitor) 80 mg PO DAILY [facility] Last Admin: 12/08/17 09:50 Dose: 80 mg Metronidazole (Flagyl) 500 mg in 100 mls @ 100 mls/hr IVPB Q8 [facility]; Protocol Last Admin: 12/08/17 14:17 Dose: 100 mls/hr Ceftriaxone Sodium (Rocephin 1 Gram Ivpb) 1 gm in 100 mls @ 100 mls/hr IVPB DAILY [facility]; Protocol Last Admin: 12/08/17 09:50 Dose: 100 mls/hr Insulin Human Regular (Humulin R Low) 0 units SC ACHS [facility]; Protocol Last Admin: 12/08/17 15:30 Dose: Not Given Lisinopril (Zestril) 10 mg PO DAILY [facility] Last Admin: 12/08/17 09:50 Dose: 10 mg Pantoprazole Sodium (Protonix Inj) 40 mg IVP DAILY [facility] Last Admin: 12/08/17 09:49 Dose: 40 mg Tamsulosin HCl (Flomax) 0.4 mg PO DAILY [facility] Last Admin: 12/08/17 09:50 Dose: 0.4 mg Results - Vital Signs Recent Vital Signs: Last Vital Signs Temp 98 F 12/08/17 14:00 Pulse 73 12/08/17 14:00 Resp 16 12/08/17 14:00 BP 113/73 12/08/17 14:00 Pulse Ox 98 12/08/17 14:00 - Labs Result Diagrams: 12/08/17 06:30 12/08/17 06:30 Labs: Laboratory Results - last 24 hr 12/07/17 12/07/17 12/08/17 16:06 21:13 06:30 WBC 11.5 H RBC 3.85 Hgb 11.4 L Hct 32.9 L MCV 85.5 MCH 29.6 MCHC 34.7 RDW 15.2 H Plt Count 196 MPV 11.0 Gran % 62.1 Lymph % (Auto) 13.9 L [place] % (Auto) 11.1 H Eos % (Auto) 12.3 H Baso % (Auto) 0.6 Gran # 7.15 H Lymph # (Auto) 1.6 [place] # (Auto) 1.3 H Eos # (Auto) 1.4 H Baso # (Auto) 0.07 Sodium Potassium Chloride Carbon Dioxide Anion Gap BUN Creatinine Est GFR ( Amer) Est GFR (Non-Af Amer) POC Glucose (mg/dL) 86 106 Random Glucose Calcium Phosphorus Magnesium Total Bilirubin AST ALT Alkaline Phosphatase Total Protein Albumin Globulin Albumin/Globulin Ratio 12/08/17 12/08/17 12/08/17 06:30 06:39 11:08 WBC RBC Hgb Hct MCV MCH MCHC RDW Plt Count MPV Gran % Lymph % (Auto) [place] % (Auto) Eos % (Auto) Baso % (Auto) Gran # Lymph # (Auto) [place] # (Auto) Eos # (Auto) Baso # (Auto) Sodium 140 Potassium 3.7 Chloride 108 H Carbon Dioxide 23 Anion Gap 13 BUN 11 Creatinine 0.8 Est GFR ( Amer) > 60 Est GFR (Non-Af Amer) > 60 POC Glucose (mg/dL) 115 H 137 H Random Glucose 115 H Calcium 8.5 Phosphorus 3.0 Magnesium 2.1 Total Bilirubin 0.4 AST 24 ALT 25 Alkaline Phosphatase 96 Total Protein 6.8 Albumin 3.4 Globulin 3.4 Albumin/Globulin Ratio 1.0 L 12/08/17 16:11 WBC RBC Hgb Hct MCV MCH MCHC RDW Plt Count MPV Gran % Lymph % (Auto) [place] % (Auto) Eos % (Auto) Baso % (Auto) Gran # Lymph # (Auto) [place] # (Auto) Eos # (Auto) Baso # (Auto) Sodium Potassium Chloride Carbon Dioxide Anion Gap BUN Creatinine Est GFR ( Amer) Est GFR (Non-Af Amer) POC Glucose (mg/dL) 109 Random Glucose Calcium Phosphorus Magnesium Total Bilirubin AST ALT Alkaline Phosphatase Total Protein Albumin Globulin Albumin/Globulin Ratio Assessment & Plan - Assessment and Plan (Free Text) Plan: I personally saw and examined the patient with the resident staff and agree with the above assessment and plan with following. I personally reviewed the available diagnostic images and imaging reports. Concerning for right colon malignancy, given recent weight loss, decreased appetite, anemia and no prior colonoscopy.
[2017-12-07 07:25] LABS: ALBUMIN 3.6 g/dL (3.0-4.8); ALT/SGPT 24 U/L (7-56); AST/SGOT 18 U/L (17-59); BLOOD UREA NITROGEN 17 mg/dL (7-21); CALCIUM 8.5 mg/dL (8.4-10.5); GFR NON-AFRICAN AMERICAN > 60
[2017-12-07] MEDS ORDERED: Magnesium Sulfate 2 gm/50 ml 2 GM/50 ML BAG IVPB ONE (09:23)
[2017-12-07] MEDS: cefTRIAXone 1 gm 1 GM/100 ML BAG IVPB SCH (10:14)
[2017-12-07] MEDS: Insulin Reg-LOW-Coverage SC SCH ×4 (10:15→22:34)
[2017-12-07] MEDS: Aspirin 325 mg EC Tablets PO SCH (10:15)
--- NOTE | 2017-12-07 15:25 | CON ---
DATE: 12/07/2017 HISTORY OF PRESENT ILLNESS: I saw Mr. Rodgers this morning. He is a 72-year-old male with past medical history of hypertension, diabetes, prostate disease, coronary artery disease, status post cardiac stent placement, presented with 3 to 4 days of right upper quadrant pain. The patient denies hematemesis or rectal bleeding. Tried numerous modalities at home without relief and therefore came into the emergency room. Today, no prior episodes of diverticulitis. PHYSICAL EXAMINATION VITAL SIGNS: I reviewed this patient's vital signs. HEENT: Noncontributory. LUNGS: Decreased breath sounds, basilar. HEART: Regular rhythm. ABDOMEN: Soft, nontender in the left upper and left lower quadrant. Periumbilical area with some discomfort in the right lower quadrant. There is a fullness in the area of the right periumbilical and the right lower quadrant. IMAGING STUDIES: Evaluation of imaging studies indicates possible segmental colitis involving the cecum, proximal ascending colon or possibly diverticulitis. I reviewed the biliary findings on the CT scan as well. LABORATORY DATA: Indicated of white count of 14,000, H and H of 12 and 34 with platelet count of 164. Chemistry for the most part noncontributory. ASSESSMENT: This is a 72-year-old male admitted with complaints of right lower quadrant pain acute onset, not associated with rectal bleeding. The patient noted recurrent problem with severe constipation which may have precipitated current episode. Overall, the patient has discomfort on examination, but he was more comfortable now than on time of admission. He is currently on antibiotic therapy consisting of ceftriaxone and metronidazole. Would continue on this as ordered. Koffi Salas DO, PhD YARIEL
[2017-12-08] MEDS: Dextrose 5%/0.9% NS 1,000 ML IV SCH (02:39)
[2017-12-08] MEDS: metroNIDAZOLE IV 500 mg/100 ml 500 MG/100 ML BAG IVPB SCH ×3 (05:41→21:16)
[2017-12-08 07:37] LABS: BASO # 0.07 K/mm3 (0.0-2.0); BASO % 0.6 % (0.0-3.0); EOS # 1.4 (0.0-0.7); EOS % 12.3 % (1.5-5.0); GRAN # 7.15 (1.4-6.5); GRAN % 62.1 % (50.0-68.0); HEMOGLOBIN 11.4 g/dL (14.0-18.0); LYMPH # 1.6 (1.2-3.4); LYMPH % 13.9 % (22.0-35.0); MEAN CELL VOLUME 85.5 fl (80.0-105.0); MEAN CORPUSCULAR HEMOGLOBIN 29.6 pg (25.0-35.0); MEAN CORPUSCULAR HGB CONC 34.7 g/dl (31.0-37.0); MONO # 1.3 (0.1-0.6); MONO % 11.1 % (1.0-6.0); RBC 3.85 10^6/uL (3.5-6.1); RED CELL DISTRIBUTION WIDTH 15.2 % (11.5-14.5); WHITE BLOOD COUNT 11.5 10^3/ul (4.5-11.0)
[2017-12-08 07:56] LABS: ALBUMIN 3.4 g/dL (3.0-4.8); ALT/SGPT 25 U/L (7-56); AST/SGOT 24 U/L (17-59); BLOOD UREA NITROGEN 11 mg/dL (7-21); CALCIUM 8.5 mg/dL (8.4-10.5); GFR NON-AFRICAN AMERICAN > 60
[2017-12-08] MEDS: Insulin Reg-LOW-Coverage SC SCH ×4 (08:30→22:28)
[2017-12-08] MEDS: Aspirin 325 mg EC Tablets PO SCH (09:49)
[2017-12-08] MEDS: cefTRIAXone 1 gm 1 GM/100 ML BAG IVPB SCH (09:50)
--- NOTE | 2017-12-08 10:38 | CP.PCM.PN ---
Addendum entered and electronically signed by Shantell Kingsley DO 12/08/17 13:17: Patient now states 7 lbs weight loss in 1 week and a total of 15lbs in 2 weeks. Decreased appetite for the past two weeks. Stat fecal occult blood. d/w Dr. Gunn [facility] PGY4 Original Note: <Shantell Kingsley - Last Filed: 12/08/17 10:35> Subjective - Date & Time of Evaluation Date of Evaluation: 12/08/17 Time of Evaluation: 07:00 - Subjective Subjective: Surgery: Dr. Blake Gunn Patient reports feeling much better with significant improvement of pain. He denies n/v/f/c. He denies diarrhea, BM, or flatus. He reports tolerating CLD. He has been OOB. Further discussion with patient, he denies colonoscopy in the past although it has been recommended for him to do so. He denies changes in his stool, bloody stools or black stools. He reports occasional constipation but denies being admitted for prior episodes of diverticulitis. He denies weight loss, recent or significant. He denies family history or colon CA or IBD. Objective - Vital Signs/Intake and Output Vital Signs (last 24 hours): Temp Pulse Resp BP Pulse Ox 98.3 F 69 20 153/79 H 97 12/08/17 08:40 12/08/17 09:50 12/08/17 08:40 12/08/17 09:50 12/08/17 08:40 - Medications Medications: Current Medications Aspirin (Ecotrin) 325 mg PO DAILY [facility] Last Admin: 12/08/17 09:49 Dose: 325 mg Atorvastatin Calcium (Lipitor) 80 mg PO DAILY [facility] Last Admin: 12/08/17 09:50 Dose: 80 mg Metronidazole (Flagyl) 500 mg in 100 mls @ 100 mls/hr IVPB Q8 [facility]; Protocol Last Admin: 12/08/17 05:41 Dose: 100 mls/hr Ceftriaxone Sodium (Rocephin 1 Gram Ivpb) 1 gm in 100 mls @ 100 mls/hr IVPB DAILY [facility]; Protocol Last Admin: 12/08/17 09:50 Dose: 100 mls/hr Insulin Human Regular (Humulin R Low) 0 units SC ACHS [facility]; Protocol Last Admin: 12/08/17 08:30 Dose: Not Given Lisinopril (Zestril) 10 mg PO DAILY [facility] Last Admin: 12/08/17 09:50 Dose: 10 mg Pantoprazole Sodium (Protonix Inj) 40 mg IVP DAILY [facility] Last Admin: 12/08/17 09:49 Dose: 40 mg Tamsulosin HCl (Flomax) 0.4 mg PO DAILY [facility] Last Admin: 12/08/17 09:50 Dose: 0.4 mg - Labs Labs: 12/08/17 06:30 12/08/17 06:30 PT 13.7 SECONDS (9.4-12.5) H 12/06/17 17:08 INR 1.20 12/06/17 17:08 APTT 29.9 Seconds (25.1-36.5) 12/06/17 17:08 - Constitutional Appears: Non-toxic, No Acute Distress - Head Exam Head Exam: ATRAUMATIC, NORMOCEPHALIC - Eye Exam Eye Exam: EOMI, Normal appearance - ENT Exam ENT Exam: Mucous Membranes Moist - Respiratory Exam Respiratory Exam: NORMAL BREATHING PATTERN. absent: Respiratory Distress - GI/Abdominal Exam GI & Abdominal Exam: Soft. absent: Distended, Guarding, Rigid, Tenderness, Rebound - Neurological Exam Neurological Exam: Alert, Awake - Psychiatric Exam Psychiatric exam: Normal Affect, Normal Mood - Skin Skin Exam: Normal Color, Warm Assessment and Plan - Assessment and Plan (Free Text) Assessment: 72 y/o male w/ right sided colitis vs diverticulitis Plan: -cont abx -IVF -ADAT -OOB -recommend patient undergo colonoscopy once inflammation subsides to r/o colon mass/CA -strict f/u with GI team -no acute surgical intervention at this time -[facility] <Blake Gunn - Last Filed: 12/08/17 18:46> Objective - Vital Signs/Intake and Output Vital Signs (last 24 hours): Temp Pulse Resp BP Pulse Ox 98 F 73 16 113/73 98 12/08/17 14:00 12/08/17 14:00 12/08/17 14:00 12/08/17 14:00 12/08/17 14:00 - Medications Medications: Current Medications Acetaminophen (Tylenol 325mg Tab) 650 mg PO Q6H PRN PRN Reason: Fever >100.4 F Aspirin (Ecotrin) 325 mg PO DAILY [facility] Last Admin: 12/08/17 09:49 Dose: 325 mg Atorvastatin Calcium (Lipitor) 80 mg PO DAILY [facility] Last Admin: 12/08/17 09:50 Dose: 80 mg Metronidazole (Flagyl) 500 mg in 100 mls @ 100 mls/hr IVPB Q8 [facility]; Protocol Last Admin: 12/08/17 14:17 Dose: 100 mls/hr Ceftriaxone Sodium (Rocephin 1 Gram Ivpb) 1 gm in 100 mls @ 100 mls/hr IVPB DAILY [facility]; Protocol Last Admin: 12/08/17 09:50 Dose: 100 mls/hr Insulin Human Regular (Humulin R Low) 0 units SC ACHS [facility]; Protocol Last Admin: 12/08/17 15:30 Dose: Not Given Lisinopril (Zestril) 10 mg PO DAILY [facility] Last Admin: 12/08/17 09:50 Dose: 10 mg Pantoprazole Sodium (Protonix Inj) 40 mg IVP DAILY [facility] Last Admin: 12/08/17 09:49 Dose: 40 mg Tamsulosin HCl (Flomax) 0.4 mg PO DAILY [facility] Last Admin: 12/08/17 09:50 Dose: 0.4 mg - Labs Labs: 12/08/17 06:30 12/08/17 06:30 PT 13.7 SECONDS (9.4-12.5) H 12/06/17 17:08 INR 1.20 12/06/17 17:08 APTT 29.9 Seconds (25.1-36.5) 12/06/17 17:08 Assessment and Plan - Assessment and Plan (Free Text) Plan: Patient seen and examined at bedside with resident staff. Agree with above. See addendum from H+P for further details.
--- NOTE | 2017-12-08 11:52 | CP.PCM.PN ---
<Jose Crawley - Last Filed: 12/08/17 11:40> Subjective - Date & Time of Evaluation Date of Evaluation: 12/08/17 Time of Evaluation: 11:40 - Subjective Subjective: PGY-2 medicine progress note for Dr Frost No acute events noted overnight. Patient is tolerating his clear liquid diet without pain. Still has not had a BM. Did not offer any complaints. Still has pain in right lower quadrant only to palpation. Denied fevers, cp, sob. Objective - Vital Signs/Intake and Output Vital Signs (last 24 hours): Temp Pulse Resp BP Pulse Ox 98.3 F 69 20 153/79 H 97 12/08/17 08:40 12/08/17 09:50 12/08/17 08:40 12/08/17 09:50 12/08/17 08:40 - Medications Medications: Current Medications Aspirin (Ecotrin) 325 mg PO DAILY [facility] Last Admin: 12/08/17 09:49 Dose: 325 mg Atorvastatin Calcium (Lipitor) 80 mg PO DAILY [facility] Last Admin: 12/08/17 09:50 Dose: 80 mg Metronidazole (Flagyl) 500 mg in 100 mls @ 100 mls/hr IVPB Q8 [facility]; Protocol Last Admin: 12/08/17 05:41 Dose: 100 mls/hr Ceftriaxone Sodium (Rocephin 1 Gram Ivpb) 1 gm in 100 mls @ 100 mls/hr IVPB DAILY [facility]; Protocol Last Admin: 12/08/17 09:50 Dose: 100 mls/hr Insulin Human Regular (Humulin R Low) 0 units SC ACHS [facility]; Protocol Last Admin: 12/08/17 08:30 Dose: Not Given Lisinopril (Zestril) 10 mg PO DAILY [facility] Last Admin: 12/08/17 09:50 Dose: 10 mg Pantoprazole Sodium (Protonix Inj) 40 mg IVP DAILY [facility] Last Admin: 12/08/17 09:49 Dose: 40 mg Tamsulosin HCl (Flomax) 0.4 mg PO DAILY [facility] Last Admin: 12/08/17 09:50 Dose: 0.4 mg - Labs Labs: 12/08/17 06:30 12/08/17 06:30 PT 13.7 SECONDS (9.4-12.5) H 12/06/17 17:08 INR 1.20 12/06/17 17:08 APTT 29.9 Seconds (25.1-36.5) 12/06/17 17:08 - Additional Findings Additional findings: - Constitutional Appears: Non-toxic, No Acute Distress - Head Exam Head Exam: ATRAUMATIC, NORMAL INSPECTION, NORMOCEPHALIC - Eye Exam Eye Exam: EOMI, Normal appearance, PERRL. absent: Conjunctival injection, Scleral icterus Pupil Exam: NORMAL ACCOMODATION - ENT Exam ENT Exam: Mucous Membranes Dry - Neck Exam Neck Exam: Full ROM - Respiratory Exam Respiratory Exam: Clear to Ausculation Bilateral, NORMAL BREATHING PATTERN. absent: Accessory Muscle Use, Rales, Rhonchi, Wheezes, Respiratory Distress - Cardiovascular Exam Cardiovascular Exam: RRR, +S1, +S2 - GI/Abdominal Exam GI & Abdominal Exam: Soft, Tenderness (R sided), Normal Bowel Sounds. absent: Firm, Guarding, Rigid - Extremities Exam Extremities Exam: Normal Capillary Refill, Normal Inspection. absent: Pedal Edema - Back Exam Back Exam: NORMAL INSPECTION. absent: rash noted - Neurological Exam Neurological Exam: Alert, Awake, CN II-XII Intact, Normal Gait, Oriented x3 - Psychiatric Exam Psychiatric exam: Normal Affect, Normal Mood - Skin Skin Exam: Dry, Intact, Normal Color, Warm Assessment and Plan - Assessment and Plan (Free Text) Plan: 72yo male with a PMH of HTN, DM, HLD, BPH, CAD who presents to the ED with a 4 day history of right lower quadrant pain. CT A/P showed evidence of segmental colitis of cecum and proximal ascending colon reflecting right sided diverticulitis without abscess or free air. Patient admitted to med/surg and GI and Surgery were consulted R sided diverticulitis - CTAP: suggestive of segmental colitis of cecum and proximal ascending colon, may reflect right sided diverticulitis without abscess or free air, appendix is prominent, but appendicitis is not suspected. Mild dilation of the central intrahepatic biliary tree and prox mid common bile duct, gallbladder mildly distended but nonacute appearing - He denies colonoscopy in the past; denies rectal bleeding - low suspicion for appendicitis as per surgical team - Rocephin 1g ivp qd and Flagyl 500mg ivp q8h - Tylenol 650mg po q6h prn for fever - advanced to full liquid diet today and if tolerated advancement to solids tomorrow - follow up stool cultures, fecal leukocytes, FOBT - blood cultures negative up to date - D5NS @ 100 - GI consulted, Dr Salas * possibly precipitated by severe constipation * continue current orders - Surgery consulted, Dr Gunn * recommend patient undergo colonoscopy once inflammation subsides to r/o colon mass/CA * no acute surgical intervention at this time Hx of HTN - lisinopril 10mg po qd - maintain normotension Hx of HLD - continue home lipitor 80mg po qd Hx of DM2 - ISS - accuchecks Hx of BPH - continue home flomax 0.4mg po qd Hx of CAD - cardiac stent 9 years ago - continue home aspirin 325mg po qd (denies rectal bleeding) GI ppx: Protonix 40mg ivp qd DVT ppx: SCD Diet: Full liquid Discussed with Dr. Frost <Iva Frost - Last Filed: 12/08/17 16:00> Objective - Vital Signs/Intake and Output Vital Signs (last 24 hours): Temp Pulse Resp BP Pulse Ox 98.3 F 69 20 153/79 H 97 12/08/17 08:40 12/08/17 09:50 12/08/17 08:40 12/08/17 09:50 12/08/17 08:40 - Medications Medications: Current Medications Acetaminophen (Tylenol 325mg Tab) 650 mg PO Q6H PRN PRN Reason: Fever >100.4 F Aspirin (Ecotrin) 325 mg PO DAILY [facility] Last Admin: 12/08/17 09:49 Dose: 325 mg Atorvastatin Calcium (Lipitor) 80 mg PO DAILY [facility] Last Admin: 12/08/17 09:50 Dose: 80 mg Metronidazole (Flagyl) 500 mg in 100 mls @ 100 mls/hr IVPB Q8 [facility]; Protocol Last Admin: 12/08/17 14:17 Dose: 100 mls/hr Ceftriaxone Sodium (Rocephin 1 Gram Ivpb) 1 gm in 100 mls @ 100 mls/hr IVPB DAILY [facility]; Protocol Last Admin: 12/08/17 09:50 Dose: 100 mls/hr Insulin Human Regular (Humulin R Low) 0 units SC ACHS [facility]; Protocol Last Admin: 12/08/17 12:30 Dose: Not Given Lisinopril (Zestril) 10 mg PO DAILY [facility] Last Admin: 12/08/17 09:50 Dose: 10 mg Pantoprazole Sodium (Protonix Inj) 40 mg IVP DAILY [facility] Last Admin: 12/08/17 09:49 Dose: 40 mg Tamsulosin HCl (Flomax) 0.4 mg PO DAILY [facility] Last Admin: 12/08/17 09:50 Dose: 0.4 mg - Labs Labs: 12/08/17 06:30 12/08/17 06:30 PT 13.7 SECONDS (9.4-12.5) H 12/06/17 17:08 INR 1.20 12/06/17 17:08 APTT 29.9 Seconds (25.1-36.5) 12/06/17 17:08 Attending/Attestation - Attestation I have personally seen and examined this patient.: Yes I have fully participated in the care of the patient.: Yes I have reviewed all pertinent clinical information, including history, physical exam and plan: Yes Notes (Text): 12/08/17 15:58 Attending note; Patient seen and examined with resident. Patient is alert, awake. Abdominal pain improved significantly. Tolerating liquid diet. Denies any fevers, chills. Denies any nausea, vomiting. Patient is a 72 year-old male with a PMH of HTN, DM, HLD, BPH, CAD who presents to the ED with a 4 day history of right lower quadrant pain. CT A/P showed evidence of segmental colitis of cecum and proximal ascending colon reflecting right sided diverticulitis without abscess or free air. Patient was evaluated by GI. Continue IV Rocephin and Flagyl. Started on clear liquid diet. Advance to soft diet tomorrow. Case discussed with GI in detail. Hypertension; continue lisinopril. Hypercholesterolemia; continue Lipitor. BPH; continue Flomax. Possible discharge home tomorrow. Upon discharge the patient will follow-up with PMD Dr. Prasad. Needs close GI follow-up for colonoscopy.
--- NOTE | 2017-12-08 12:40 | PN ---
DATE: 12/08/2017 SUBJECTIVE: I saw Mr. Rodgers this morning. He is a 72-year-old male with complaints of severe right lower quadrant abdominal pain with nausea and diarrhea. At the bedside this morning. The patient indicates lesser amount of pain in the right lower quadrant and nausea and vomiting has dissipated. Denies any hematemesis or rectal bleeding. PHYSICAL EXAMINATION: VITAL SIGNS: I reviewed this patient's vital signs. HEENT: Noncontributory. LUNGS: Decreased breath sounds, basilar. HEART: Regular rhythm. ABDOMEN: Soft. No tenderness elicited in the left upper and left lower quadrant. There was no tenderness as well in the right upper quadrant. Note that the patient still has fullness noted in the area of the right paraumbilical area extending to the right lower quadrant. Tenderness rated as roughly 2 or 3/10 at this point in time. The abdomen has decompressed substantially. LABORATORY DATA: Reviewed this patient's laboratory data, which indicates decrease in white count since admission. OVERALL ASSESSMENT: A 72-year-old male admitted with probable diverticulitis, currently treated, now on antibiotic therapy consisting of ceftriaxone and metronidazole. The patient will be followed up by house staff as well as surgical residents later on this morning. He will need colonoscopy at later date. Koffi Salas DO, PhD YARIEL
[2017-12-09] MEDS: metroNIDAZOLE IV 500 mg/100 ml 500 MG/100 ML BAG IVPB SCH ×2 (05:46→16:17)
[2017-12-09] MEDS: Insulin Reg-LOW-Coverage SC SCH (06:37)
[2017-12-09 06:43] LABS: BASO # 0.09 K/mm3 (0.0-2.0); BASO % 1.1 % (0.0-3.0); EOS # 1.9 (0.0-0.7); EOS % 22.3 % (1.5-5.0); GRAN # 4.16 (1.4-6.5); HEMOGLOBIN 10.7 g/dL (14.0-18.0); LYMPH # 1.5 (1.2-3.4); LYMPH % 17.8 % (22.0-35.0); MEAN CELL VOLUME 85.6 fl (80.0-105.0); MEAN CORPUSCULAR HEMOGLOBIN 29.1 pg (25.0-35.0); MEAN PLATELET VOLUME 10.4 fl (7.0-11.0); MONO # 0.7 (0.1-0.6); MONO % 8.8 % (1.0-6.0); PLATELET COUNT 203 10^3/uL (120.0-450.0); RBC 3.68 10^6/uL (3.5-6.1); RED CELL DISTRIBUTION WIDTH 15.3 % (11.5-14.5); WHITE BLOOD COUNT 8.3 10^3/ul (4.5-11.0)
[2017-12-09 07:34] LABS: ALBUMIN 3.4 g/dL (3.0-4.8); ALT/SGPT 23 U/L (7-56); AST/SGOT 24 U/L (17-59); BLOOD UREA NITROGEN 9 mg/dL (7-21); CALCIUM 8.6 mg/dL (8.4-10.5); GFR NON-AFRICAN AMERICAN > 60
[2017-12-09 08:32] LABS: BASOPHIL 3 % (0.0-1.0); EOSINOPHIL 26 % (0.0-3.0); LYMPHOCYTE 17 % (22.0-35.0); MONOCYTE 8 % (1.0-6.0); NEUTROPHIL 46 % (50.0-70.0); PLATELET ESTIMATE NORMAL (NORMAL)
--- NOTE | 2017-12-09 08:42 | CP.PCM.PN ---
Subjective - Date & Time of Evaluation Date of Evaluation: 12/09/17 Time of Evaluation: 08:39 - Subjective Subjective: General Surgery progress note for Dr. Blake Gunn Patient seen and examined at bedside. No acute events overnight. Patient reports improvement in his pain. Denies nausea, vomiting, diarrhea, or constipation. Objective - Vital Signs/Intake and Output Vital Signs (last 24 hours): Temp Pulse Resp BP Pulse Ox 98.2 F 69 20 143/83 98 12/09/17 08:09 12/09/17 08:09 12/09/17 08:09 12/09/17 08:09 12/09/17 08:09 Intake and Output: 12/09/17 12/09/17 06:59 18:59 Intake Total 240 Balance 240 - Medications Medications: Current Medications Acetaminophen (Tylenol 325mg Tab) 650 mg PO Q6H PRN PRN Reason: Fever >100.4 F Aspirin (Ecotrin) 325 mg PO DAILY [facility] Last Admin: 12/08/17 09:49 Dose: 325 mg Atorvastatin Calcium (Lipitor) 80 mg PO DAILY [facility] Last Admin: 12/08/17 09:50 Dose: 80 mg Metronidazole (Flagyl) 500 mg in 100 mls @ 100 mls/hr IVPB Q8 [facility]; Protocol Last Admin: 12/09/17 05:46 Dose: 100 mls/hr Ceftriaxone Sodium (Rocephin 1 Gram Ivpb) 1 gm in 100 mls @ 100 mls/hr IVPB DAILY [facility]; Protocol Last Admin: 12/08/17 09:50 Dose: 100 mls/hr Insulin Human Regular (Humulin R Low) 0 units SC ACHS [facility]; Protocol Last Admin: 12/09/17 06:37 Dose: Not Given Lisinopril (Zestril) 10 mg PO DAILY [facility] Last Admin: 12/08/17 09:50 Dose: 10 mg Pantoprazole Sodium (Protonix Inj) 40 mg IVP DAILY [facility] Last Admin: 12/08/17 09:49 Dose: 40 mg Tamsulosin HCl (Flomax) 0.4 mg PO DAILY [facility] Last Admin: 12/08/17 09:50 Dose: 0.4 mg - Labs Labs: 12/09/17 06:20 12/09/17 06:20 PT 13.7 SECONDS (9.4-12.5) H 12/06/17 17:08 INR 1.20 12/06/17 17:08 APTT 29.9 Seconds (25.1-36.5) 12/06/17 17:08 - Constitutional Appears: Well, Non-toxic, No Acute Distress - Head Exam Head Exam: ATRAUMATIC, NORMOCEPHALIC - Eye Exam Eye Exam: Normal appearance - ENT Exam ENT Exam: Mucous Membranes Moist - Respiratory Exam Respiratory Exam: NORMAL BREATHING PATTERN. absent: Respiratory Distress - Cardiovascular Exam Cardiovascular Exam: RRR. absent: Tachycardia - GI/Abdominal Exam GI & Abdominal Exam: Soft. absent: Distended, Guarding, Tenderness - Neurological Exam Neurological Exam: Alert, Awake, Oriented x3 - Psychiatric Exam Psychiatric exam: Normal Affect, Normal Mood - Skin Skin Exam: Dry, Intact, Normal Color, Warm Assessment and Plan - Assessment and Plan (Free Text) Assessment: 72 y/o male w/ right sided colitis vs diverticulitis Plan: - Continue PO antibiotics for 7 more days - Must have follow-up appointment scheduled with GI prior to discharge - Low residual diet - If tolerates diet, clear for discharge Discussed case with Dr. Luis A Hurst DO PGY-1
[2017-12-09] MEDS: Aspirin 325 mg EC Tablets PO SCH (10:24)
[2017-12-09] MEDS: cefTRIAXone 1 gm 1 GM/100 ML BAG IVPB SCH (10:24)
--- NOTE | 2017-12-09 12:45 | PN ---
DATE: 12/09/2017 SUBJECTIVE: I examined Mr. Rodgers this morning. He is a 72-year-old male with complaints of severe right lower quadrant pain, nausea, vomiting, and diarrhea. Symptoms have been for the most part resolved. At the bedside, the patient was evaluated this morning. The discomfort level may be a 1-2/10. He said no hematemesis or rectal bleeding. I reviewed this case with Dr. Frost yesterday. PHYSICAL EXAMINATION: VITAL SIGNS: I reviewed this patient's vital signs. HEENT: Noncontributory. LUNGS: Clear to auscultation except for decreased breath sounds at the bases. HEART: Regular rhythm. ABDOMEN: Soft, the most part nontender in all quadrants and fullness was noted in the area of the right paraumbilical and the right lower quadrant, decreased relative to the date of admission. The abdomen is not distended. OVERALL ASSESSMENT AND PLAN: This is a 72-year-old male admitted with complaints of abdominal pain related to right colonic diverticulitis. The patient will probably go home today. I discussed with Dr. Forst yesterday. He should be on a low fiber diet; given at time period, he is on antibiotic therapy which probably should consist of Augmentin 500 b.i.d. plus metronidazole 500 three times a day. He is advised to have a colonoscopy at a later date roughly 6-8 weeks after completion of antibiotic therapy. Koffi Salas DO
[2017-12-09 17:22] VITALS: BP 132/81; PULSE 58; RESP 18; TEMP 98.1; O2SAT 99
--- NOTE | 2017-12-09 18:25 | CP.PCM.DIS ---
Provider - Provider Date of Admission: 12/06/17 19:37 Attending physician: Iva Frost MD Hospital Course - Lab Results Lab Results: Micro Results 12/06/17 22:06 Blood Blood Culture - Preliminary NO GROWTH AFTER 48 HOURS Most Recent Lab Values WBC 8.3 10^3/ul (4.5-11.0) D 12/09/17 06:20 RBC 3.68 10^6/uL (3.5-6.1) 12/09/17 06:20 Hgb 10.7 g/dL (14.0-18.0) L 12/09/17 06:20 Hct 31.5 % (42.0-52.0) L 12/09/17 06:20 MCV 85.6 fl (80.0-105.0) 12/09/17 06:20 MCH 29.1 pg (25.0-35.0) 12/09/17 06:20 MCHC 34.0 g/dl (31.0-37.0) 12/09/17 06:20 RDW 15.3 % (11.5-14.5) H 12/09/17 06:20 Plt Count 203 10^3/uL (120.0-450.0) 12/09/17 06:20 MPV 10.4 fl (7.0-11.0) 12/09/17 06:20 Gran % 50.0 % (50.0-68.0) 12/09/17 06:20 Lymph % (Auto) 17.8 % (22.0-35.0) L 12/09/17 06:20 [place] % (Auto) 8.8 % (1.0-6.0) H 12/09/17 06:20 Eos % (Auto) 22.3 % (1.5-5.0) H 12/09/17 06:20 Baso % (Auto) 1.1 % (0.0-3.0) 12/09/17 06:20 Gran # 4.16 (1.4-6.5) 12/09/17 06:20 Lymph # (Auto) 1.5 (1.2-3.4) 12/09/17 06:20 [place] # (Auto) 0.7 (0.1-0.6) H 12/09/17 06:20 Eos # (Auto) 1.9 (0.0-0.7) H 12/09/17 06:20 Baso # (Auto) 0.09 K/mm3 (0.0-2.0) 12/09/17 06:20 Neutrophils % (Manual) 46 % (50.0-70.0) L 12/09/17 06:20 Lymphocytes % (Manual) 17 % (22.0-35.0) L 12/09/17 06:20 Monocytes % (Manual) 8 % (1.0-6.0) H 12/09/17 06:20 Eosinophils % (Manual) 26 % (0.0-3.0) H 12/09/17 06:20 Basophils % (Manual) 3 % (0.0-1.0) H 12/09/17 06:20 Platelet Evaluation Normal (NORMAL) 12/09/17 06:20 PT 13.7 SECONDS (9.4-12.5) H 12/06/17 17:08 INR 1.20 12/06/17 17:08 APTT 29.9 Seconds (25.1-36.5) 12/06/17 17:08 pO2 42 mm/Hg (30-55) 12/06/17 17:17 VBG pH 7.36 (7.32-7.43) 12/06/17 17:17 VBG pCO2 46.0 (40-60) 12/06/17 17:17 VBG HCO3 26.0 mmol/l (21-28) 12/06/17 17:17 VBG Total CO2 27.4 mmol.L (22-28) 12/06/17 17:17 VBG O2 Sat (Calc) 82.7 % (40-65) H 12/06/17 17:17 VBG Base Excess 0.1 mmol/L (0.0-2.0) 12/06/17 17:17 VBG Potassium 4.5 mmol/L (3.6-5.2) 12/06/17 17:17 Sodium 136.0 mmol/L (132-148) 12/06/17 17:17 Chloride 105.0 mmol/L (98-107) 12/06/17 17:17 Glucose 101 mg/dl (75-110) 12/06/17 17:17 Lactate 1.0 mmol/L (0.7-2.1) 12/06/17 17:17 FiO2 21.0 % 12/06/17 17:17 Sodium 141 mmol/L (132-148) 12/09/17 06:20 Potassium 4.3 mmol/L (3.6-5.0) 12/09/17 06:20 Chloride 108 mmol/L (98-107) H 12/09/17 06:20 Carbon Dioxide 26 mmol/L (21-33) 12/09/17 06:20 Anion Gap 12 (10-20) 12/09/17 06:20 BUN 9 mg/dL (7-21) 12/09/17 06:20 Creatinine 0.8 mg/dl (0.8-1.5) 12/09/17 06:20 Est GFR ( Amer) > 60 12/09/17 06:20 Est GFR (Non-Af Amer) > 60 12/09/17 06:20 POC Glucose (mg/dL) 137 mg/dL (65-110) H 12/09/17 16:06 Random Glucose 102 mg/dL (70-110) 12/09/17 06:20 Calcium 8.6 mg/dL (8.4-10.5) 12/09/17 06:20 Phosphorus 3.3 mg/dL (2.5-4.5) 12/09/17 06:20 Magnesium 1.9 mg/dL (1.7-2.2) 12/09/17 06:20 Total Bilirubin 0.4 mg/dL (0.2-1.3) 12/09/17 06:20 AST 24 U/L (17-59) 12/09/17 06:20 ALT 23 U/L (7-56) 12/09/17 06:20 Alkaline Phosphatase 83 U/L (38-126) 12/09/17 06:20 Total Protein 6.8 g/dL (5.8-8.3) 12/09/17 06:20 Albumin 3.4 g/dL (3.0-4.8) 12/09/17 06:20 Globulin 3.4 gm/dL 12/09/17 06:20 Albumin/Globulin Ratio 1.0 (1.1-1.8) L 12/09/17 06:20 Venous Blood Potassium 4.5 mmol/L (3.6-5.2) 12/06/17 17:17 Urine Color Light yellow (YELLOW) 12/06/17 17:08 Urine Appearance Clear (CLEAR) 12/06/17 17:08 Urine pH 6.0 (4.7-8.0) 12/06/17 17:08 Ur Specific [place] 1.025 (1.005-1.035) 12/06/17 17:08 Urine Protein 30 mg/dL (<30 mg/dL) H 12/06/17 17:08 Urine Glucose (UA) >=1000 mg/dL (NEGATIVE) 12/06/17 17:08 Urine Ketones Trace mg/dL (NEGATIVE) H 12/06/17 17:08 Urine Blood Negative (NEGATIVE) 12/06/17 17:08 Urine Nitrate Negative (NEGATIVE) 12/06/17 17:08 Urine Bilirubin Small (NEGATIVE) H 12/06/17 17:08 Urine Urobilinogen 2.0 E.U./dL (<1 E.U./dL) H 12/06/17 17:08 Ur Leukocyte Esterase Negative [facility]/uL (NEGATIVE) 12/06/17 17:08 Urine RBC 0 - 2 /hpf (0-2) 12/06/17 17:08 Urine WBC Negative /hpf (0-6) 12/06/17 17:08 Ur Epithelial Cells 0 - 2 /hpf (0-5) 12/06/17 17:08 Urine Bacteria Trace (NEG) 12/06/17 17:08 Discharge Exam - Head Exam Head Exam: ATRAUMATIC, NORMOCEPHALIC Discharge Plan - Discharge Medications Prescriptions: Amoxicillin/Clavulanate [Augmentin 875 MG-125 MG] 1 tab PO BID 7 Days #14 tab metroNIDAZOLE [Flagyl] 500 mg PO Q8 #21 tab - Follow Up Plan Condition: FAIR Disposition: HOME/ ROUTINE Instructions: Colonoscopy (DC), What You Should Know About Antibiotics, Diverticulitis (DC) Additional Instructions: You were admitted with the diagnosis of diverticulitis Please follow up with your PMD within 3-5 days of discharge Please follow up with Gastroenterology (stomach doctor) Dr. Salas - contact his office at [phone] on Saturday at 2pm to schedule an appointment Please stop taking your home lisinopril as your blood pressures was normal here, please resume lisinopril after you see your primary care doctor Please continue taking your other home medications as previously prescribed Please start taking the following medications: Augmentin 875-125mg twice a day for 7 days total Metronidazole 500mg every 8 hours for 7 days total - PLEASE DO NOT DRINK ALCOHOL WHILE TAKING METRONIDAZOLE Please continue taking all antibiotics for the entire duration prescribed even if you begin feeling better Please continue to Eat a low-fiber diet and soft diet. This gives your bowel a chance to rest so that it can recover. Foods to include: flake cereal, mashed potatoes, pancakes, waffles, pasta, white bread, rice, applesauce, bananas, eggs, fish, poultry, tofu, and well-cooked vegetables Take your medicines as directed. Do not stop taking the medicines, even if you feel better. Monitor your temperature and report any rising temperature to your primary care doctor. Drink 6 to 8 glasses of water every day, unless directed otherwise. Use a heating pad or hot water bottle to reduce abdominal cramping or pain. If your symptoms worsen, or new concerning symptoms arise, please go to the nearest emergency department immediately.
== END 2017-12-09 20:04 | disposition home or self-care (01) | DRG 392 ==
LOC: ED 15:07 → ERH 19:37 → 5RSO 22:23
PROVIDERS: ADMIT Internal Medicine; ATTEND Internal Medicine
DX: K57.32 Diverticulitis of large intestine without perforation or abscess without bleeding (principal); K50.10 Crohn's disease of large intestine without complications; I25.10 Atherosclerotic heart disease of native coronary artery without angina pectoris; I10 Essential (primary) hypertension; E78.00 Pure hypercholesterolemia, unspecified; N40.0 Benign prostatic hyperplasia without lower urinary tract symptoms; K59.00 Constipation, unspecified; E11.9 Type 2 diabetes mellitus without complications; E78.5 Hyperlipidemia, unspecified; Z95.5 Presence of coronary angioplasty implant and graft; Z79.82 Long term (current) use of aspirin; Z87.891 Personal history of nicotine dependence